=== PATIENT | female | born 1955 | race African-American/Black ===

== ENCOUNTER → 2016-12-19 | Day surgery (SDC) | payer MEDICARE ==
[~2016-12-19] VITALS: Ht 167.6 cm; Wt 68.0 kg
[~2016-12-19] MED LIST: ACET325T51 PO; Acetaminophen PO; ESOM20CA28 PO; HYDR-4003 PO; KLO5T PO; LAMO200T PO; LORA1TAB PO; Lactated Ringer's 1,000 ML IV ONE; NAPR500T PO; OLAN10TA19 PO; ONDA4TAB12 PO; OXCA150T PO; POLY17PO6 PO; PRAZ2CAP2 PO
[2016-12-19 13:59] VITALS: BP 109/73; PULSE 72; RESP 16; O2SAT 96
--- NOTE | 2016-12-19 15:07 | PCM.HPANE ---
Patient Data Surgeon Admitting Provider: Attending Provider:Kiarra Aponte MD Primary Care Physician:Calvin Wolf DO Other Provider:Rachel Etienne Anesthesia Reason for Visit Pancreatic Mass Ht/WT & BMI Height (Feet): 5 Height (Inches): 6 Weight (Kilograms): 68 Body Mass Index 24.00 Allergies Coded Allergies: No Known Drug Allergies (Verified Allergy, Unknown, 12/19/14) Past Anesthesia History Anesthesia History: Denies:: Abnormal Airway, Anesthesia Reactions, Difficult Intubation, Fam Anesthesia Reaction, Fam Malignant Hypertherm, Malignant Hyperthermia Diabetes History Hx Diabetes?: No MRSA MRSA: No Medications Reported Medications Acetaminophen 325 Mg Rlqiwk797 Mg PO Q4H PRN For Pain Ref 0 12/19/16 Prazosin 2 Mg Capsule2 Mg PO HS 12/16/16 Oxcarbazepine 150 Mg Btsfdi586 Mg PO BID 30 Days 12/16/16 Olanzapine 10 Mg Flodcm79 Mg PO DAILY Ref 0 12/16/16 Esomeprazole Magnesium (Nexium)20 Mg Capsule.dr20 Mg PO DAILY Ref 0 12/16/16 Naproxen (Naprosyn)500 Mg Rnrocz764 Mg PO BID PRN For Pain Ref 0 12/16/16 Clonazepam 0.5 Mg Tablet0.5 Mg PO BID PRN For Anxiety Ref 0 12/16/16 Lorazepam 1 Mg Tablet1 Mg PO HS PRN For Insomnia Ref 0 11/07/14 Lamotrigine (Lamictal)200 Mg Yqbeec194 Mg PO BID 30 Days Ref 0 11/06/14 Discontinued Reported Medications Ranitidine 150 Mg Wziwlbx720 Mg PO DAILY 30 Days Ref 0 12/18/14 Omeprazole Magnesium (Omeprazole)20 Mg Capsule.dr20 Mg PO DAILY 30 Days Ref 0 12/18/14 Guar Gum (Benefiber)1 Each Packet1 Each PO 11/07/14 Ondansetron (Zofran)8 Mg Tab8 Mg PO [id number] PRN For Nausea 11/07/14 Quetiapine Fumarate (Seroquel)25 Mg Tablet1 Tab PO BID 30 Days Ref 0 11/07/14 Doxepin 50 Mg Ckmaouz77 Mg PO HS 30 Days 11/06/14 History HEENT History: Denies:: Abnormal Airway Difficult Intubation Dysphagia Hearing Problem Hx of Heart Problems?: No Cardiovascular History: Denies:: AICD Atrial Fibrillation Chest Pain Hypertension Pacemaker Valvular Heart Disease Hx of Respiratory Problem?: No Respiratory History: Positive for:: Asthma Denies:: COPD Cough Hemoptysis Pneumonia Tuberculosis Other History/Comment No recent MDi use Neurological History: Denies:: CVA Hx of GI Problems?: Yes Gastrointestinal History: Positive for:: Gastroesphageal Reflux Hiatal Hernia Denies:: Cirrhosis Diverticulitis Rectal Bleeding Other History/Comment Mass on CT, found for workup of feeling 'poorly" Female Hx: Denies:: Currently Musculoskeletal History: Positive for:: Fibromyalgia Denies:: Joint Replacement Psycho Social History: Positive for:: Anxiety (Bi-polar/ PTSD) Hx Depression Hx Surgeries?: Yes (ovary cyst, ganglian r hand, ) Hx Any Other Health Problems?: Yes Hx Diabetes: No Hx Alcohol Use: No Smoking Status: Former Smoker Light Tobacco Smoker Stop/Bang Treated for Sleep Apnea?: No S-Snoring: Do You Snore Loudly: No T-Tired: feel tired, fatigued: Yes O-Obsered: Observed not breath: No P-Blood Pressure: treated: No B- Body Mass Index > 35 kg/m2: No A- Age over 50: Yes N- Neck Large Circumference: No G- Gender Male: No RONALD Total Score: 2 Risk Assessment Category Category 1A: Patient has history of documented sleep apnea, and HAS NOT received any narcotic, sedative or anesthesia administration during this stay. Category 1B: Patient has history of documented sleep apnea, and HAS received any narcotic , sedative or anesthesia administration during this stay Category 2: Patient has SUSPECTED Obstructive Sleep Apnea, and HAS received any narcotic , sedative or anesthesia administration during this stay. Category 3: Patient has SUSPECTED Obstructive Sleep Apnea and HAS NOT received narcotic, sedative or anesthesia administration during this stay. Category 4: Outpatient in Procedural Areas with known sleep apnea or who screen positive for High Risk via the STOP/BANG questionnaire. Exam Exam Vital Signs Vital Signs Date Time Temp Pulse Resp B/P Pulse Ox O2 Delivery O2 Flow Rate FiO2 12/19/16 13:59 72 16 109/73 96 Room Air General Appearance: Alert, Oriented X3, Cooperative HEENT/AIRWAY: MP 2 Lungs: Clear to Auscultation Heart: Exam Unremarkable Plan Impression Patient chart reviewed, patient interviewed and anesthestic plan with risks, benefits, and alternatives discussed, and informed consent obtained. ASA Physical Status: ASA2 Mod Systemic Disease Anesthetic Plan: GA Bene/Risks/Altern/Consents: Yes HP Complete Prior to Induction: Yes Anjum Carvajal MD Dec 19, 2016 15:07
[2016-12-19 16:05] VITALS: BP 102/75; PULSE 78; RESP 14; O2SAT 99
--- NOTE | 2016-12-19 16:12 | PCM.ANEP1 ---
Post Anesthesia Phase 1 PACU Phase 1 Assessment Vital Signs Vital Signs Date Time Temp Pulse Resp B/P Pulse Ox O2 Delivery O2 Flow Rate FiO2 12/19/16 13:59 72 16 109/73 96 Room Air Anesthetic Administered: GA Level of Alertness: Awake, talking GAN's with Equal Strength: Yes Pain: No Nausea or Vomiting: No Oxygen Delivery: Room Air Lungs: Clear to Auscultation Dermatome Level: Full Sensation (Awake comfortable A/O x 3) Anjum Carvajal MD Dec 19, 2016 16:12
--- NOTE | 2016-12-19 16:12 | PCM.ANEP2 ---
Post Anesthesia Evaluation ASA/CMS Post Anesthesia VS in Patient's Normal Range?: Yes Resp Stable; Airway Patent?: Yes CV Function & Hydration Stable: Yes Mental Status Recovered?: Yes Pain control Satisfactory?: Yes N/V Control Satisfactory?: Yes Anjum Carvajal MD Dec 19, 2016 16:12
[2016-12-19 16:21] VITALS: BP 128/81; PULSE 68; RESP 14; O2SAT 100
[2016-12-19 16:26] VITALS: BP 115/77; PULSE 57; RESP 14; O2SAT 100
--- NOTE | 2016-12-20 03:35 | ENDO ---
[address] [address] ENDOSCOPY PROCEDURE PATIENT: DEEPA HUANG : 1955 MR#: [id number] ADMIT: 12/19/2016 JOB ID: [id number] PROCEDURE: EUS. INDICATION: Recent CT scan finding with a mass arising from possibly the pancreas versus the stomach wall. Imaging was performed secondary to the patient's complaint of weight loss. INSTRUMENTS USED: A [id number] linear echoendoscope, as well as a [id number]. ASA CLASSIFICATION/MALLAMPATI SCORE/MEDICATIONS: As per Dr. Carvajal's anesthesia note. PROCEDURE DETAILS: After informed consent was obtained, the patient was brought into the GI suite, where she was placed on oxygen via nasal cannula and monitored with continuous pulse oximeter, telemetry, and blood pressure monitoring. A time-out was performed. Then, she was placed in a left lateral decubitus position and medications were administered for sedation. A bite block was placed. The standard EGD scope was inserted through the bite block and advanced under direct visualization to the second portion of the duodenum without difficulty. ESOPHAGOGASTRODUODENOSCOPY FINDINGS: 1. Normal-appearing duodenal bulb, first and second portion. 2. Normal-appearing pylorus, antrum and gastric body. In the proximal portion of the gastric body, I did appreciate a bulge. The bulge measured approximately 3 x 3 cm. 3. The GE junction appeared normal. The remainder of the exam was otherwise normal. Impression: Bulge in the proximal gastric body. The linear echoendoscope was then introduced through the bite block and advanced without difficulty to the second portion of the duodenum. Linear echoendoscopic findings demonstrated the followin. There was an approximately 2.9 cm x 2.5 cm, well-circumscribed mass arising from the pancreas. The center of the mass appeared hypoechoic and multi-septated, suggestive of internal necrosis. Fine needle aspiration was not performed. The lesion appeared to be abutting the stomach wall. 2. The pancreatic duct was visualized in the body, and appeared unremarkable. 3. The remainder of the pancreas, otherwise appeared normal. 4. The common bile duct was identified and appeared to be normal in course and caliber. 5. Flow was noted in the portal vein, splenic vein, splenic artery. 6. The visualized portions of the left lobe of the liver appeared unremarkable. 7. The celiac axis was identified and no suspicious-appearing lymph nodes were seen. 8. The left adrenal gland was identified and appeared normal. 9. Examined portions of the spleen appeared normal. IMPRESSION: 1. A 2.9 cm x 2.5 cm, well circumscribed mass with what appeared to be a multi-septated necrotic center arising from the pancreas and abutting the stomach. 2. No suspicious lymph nodes were appreciated. RECOMMENDATIONS: Further plans as per Surgery. COMPLICATIONS: None. ESTIMATED BLOOD LOSS: 0.
== END | disposition home or self-care (01) ==
LOC: END 00:35
PROVIDERS: ATTEND Internal Medicine Gastroenterology
DX: K86.9 Disease of pancreas, unspecified (principal); R63.4 Abnormal weight loss

== ENCOUNTER 2017-01-03 06:30 | Inpatient (IN) | payer MEDICARE ==
[~2017-01-03] VITALS: Ht 167.6 cm; Wt 67.8 kg
[2017-01-03] VITALS (21 sets, daily range): BP systolic 109–149; BP diastolic 56–87; PULSE 50–79; RESP 12–18; O2SAT 93–98
[~2017-01-03 06:30] MED LIST changes: -ACET325T51 PO; -Acetaminophen PO; +Bupivacaine Liposome 1.3% 20 mL Inj NERVEBLOCK ONE; +CeFAZolin Inj 2 GM in IV Premix 1 EACH IV ONE; -HYDR-4003 PO; -KLO5T PO; -LAMO200T PO; -LORA1TAB PO; -Lactated Ringer's 1,000 ML IV ONE; -NAPR500T PO; -OLAN10TA19 PO; -ONDA4TAB12 PO; -OXCA150T PO; -POLY17PO6 PO; -PRAZ2CAP2 PO
[2017-01-03] MEDS: Lactated Ringer's 1,000 ML IV SCH ×4 (07:18→15:41)
[2017-01-03] MEDS ORDERED: Lactated Ringer's 1,000 ML IV ONE (10:04)
[2017-01-03] MEDS ORDERED: MetoCLOpramide 5 mg/mL 2 mL Inj IVPUSH PRN ×2 (10:20→11:30)
[2017-01-03] MEDS ORDERED: EPHEDrine Sulfate 50 mg/mL Inj IVPUSH PRN (10:20)
[2017-01-03] MEDS ORDERED: Lactated Ringer's 1,000 ML IV SCH (10:20)
[2017-01-03] MEDS ORDERED: HYDROmorphone 1 mg/mL Inj IVPUSH PRN (10:20)
[2017-01-03] MEDS ORDERED: Labetalol 5 mg/mL 4 mL Inj IV PRN (10:20)
[2017-01-03] MEDS ORDERED: Lactated Ringer's 500 ML IV PRN (10:20)
[2017-01-03] MEDS ORDERED: Ondansetron 2 mg/mL 2 mL Inj IVPUSH PRN ×2 (10:20→11:30)
[2017-01-03] MEDS ORDERED: Phenylephrine 10,000 mCg/mL Inj IVPUSH PRN (10:20)
[2017-01-03] MEDS ORDERED: Atropine 0.4 mg/mL Inj IVPUSH PRN (10:20)
[2017-01-03] MEDS ORDERED: fentaNYL-PF 50 mCg/mL 2 mL Inj IVPUSH PRN (10:20)
--- NOTE | 2017-01-03 10:23 | PCM.HPANE ---
Patient Data Surgeon Admitting Provider: Attending Provider:Orion Donnelly MD Primary Care Physician:Calvin Wolf DO Other Provider:[facility] Anesthesia Reason for Visit Pancreatic Mass Ht/WT & BMI Height (Feet): 5 Height (Inches): 6 Weight (Kilograms): 65.9 Body Mass Index 23.00 Allergies Coded Allergies: codeine (Verified Allergy, Severe, vomiting, 01/03/17) Past Anesthesia History Anesthesia History: Denies:: Abnormal Airway, Anesthesia Reactions, Difficult Intubation, Fam Anesthesia Reaction, Fam Malignant Hypertherm, Malignant Hyperthermia Diabetes History Hx Diabetes?: No MRSA MRSA: No Medications Home Meds Incl Beta Liu: No Reported Medications Esomeprazole Magnesium (Nexium)20 Mg Capsule.dr20 Mg PO DAILY Ref 0 12/16/16 Discontinued Reported Medications Acetaminophen 325 Mg Qxrath567 Mg PO Q4H PRN For Pain Ref 0 12/19/16 Prazosin 2 Mg Capsule2 Mg PO HS 12/16/16 Oxcarbazepine 150 Mg Yatpii943 Mg PO BID 30 Days 12/16/16 Olanzapine 10 Mg Bkgcqy37 Mg PO DAILY Ref 0 12/16/16 Naproxen (Naprosyn)500 Mg Tuerls175 Mg PO BID PRN For Pain Ref 0 12/16/16 Clonazepam 0.5 Mg Tablet0.5 Mg PO BID PRN For Anxiety Ref 0 12/16/16 Lorazepam 1 Mg Tablet1 Mg PO HS PRN For Insomnia Ref 0 11/07/14 Lamotrigine (Lamictal)200 Mg Hffeyi679 Mg PO BID 30 Days Ref 0 11/06/14 History HEENT History: Denies:: Abnormal Airway Difficult Intubation Dysphagia Hearing Problem Hx of Heart Problems?: No Cardiovascular History: Denies:: AICD Atrial Fibrillation Chest Pain Hypertension Pacemaker Valvular Heart Disease Hx of Respiratory Problem?: No Respiratory History: Positive for:: Asthma Denies:: COPD Cough Hemoptysis Pneumonia Tuberculosis Use of C-PAP Machine Neurological History: Positive for:: Headaches (migraines per emr) Denies:: CVA Dementia Multiple Sclerosis Parkinson's Disease Seizures Hx of GI Problems?: Yes Gastrointestinal History: Positive for:: Gastroesphageal Reflux Hiatal Hernia Denies:: Cirrhosis Diverticulitis Rectal Bleeding Other GI Pertinent History: abdominal mass- probable pancreatic- current admission problem. Hx of unintentional weight loss Hx of Problems?: No Female Hx: Denies:: Currently Skin History: Denies:: History Skin Disorders? Hx Musculoskeletal Problems?: Yes Musculoskeletal History: Positive for:: Fibromyalgia Denies:: Joint Replacement Psycho Social History: Positive for:: Anxiety (Bi-polar/ PTSD- pt recently stopped all meds) Hx Depression Hx Surgeries?: Yes (ovary cyst, ganglian r hand, ) Hx Any Other Health Problems?: Yes Other History: Denies:: Thyroid Disease Hx Diabetes: No Hx Alcohol Use: NoHx Substance Use: No Smoking Status: Current Every Day Smoker Have You Smoked inLast 12 mo: Yes Stop/Bang P-Blood Pressure: treated: No B- Body Mass Index > 35 kg/m2: No A- Age over 50: Yes N- Neck Large Circumference: No G- Gender Male: No Risk Assessment Category Category 1A: Patient has history of documented sleep apnea, and HAS NOT received any narcotic, sedative or anesthesia administration during this stay. Category 1B: Patient has history of documented sleep apnea, and HAS received any narcotic , sedative or anesthesia administration during this stay Category 2: Patient has SUSPECTED Obstructive Sleep Apnea, and HAS received any narcotic , sedative or anesthesia administration during this stay. Category 3: Patient has SUSPECTED Obstructive Sleep Apnea and HAS NOT received narcotic, sedative or anesthesia administration during this stay. Category 4: Outpatient in Procedural Areas with known sleep apnea or who screen positive for High Risk via the STOP/BANG questionnaire. Exam Exam Vital Signs Vital Signs Date Time Temp Pulse Resp B/P Pulse Ox O2 Delivery O2 Flow Rate FiO2 01/03/17 07:30 36.1 73 16 109/74 95 Room Air General Appearance: Alert, Oriented X3, Cooperative, No Acute Distress HEENT/AIRWAY: MP 2, Neck Movement (FROM), Mouth Opening (3 FBMO) Lungs: Normal Air Movement Heart: Regular Rate/Rhythm Meds/Labs/Diagnostics Admission Meds Current Medications Lactated Ringer's (Lr) 1,000 ml @ 120 mls/hr Q8H20M IV Last administered on t 07:18; Start 01/03/17 at 05:00; Stop 01/03/17 at 13:19 Plan Impression Patient chart reviewed, patient interviewed and anesthestic plan with risks, benefits, and alternatives discussed, and informed consent obtained. NPO Status: 01/02/17 2300 ASA Physical Status: ASA2 Mod Systemic Disease Anesthetic Support Modalities: Arterial Line (arterial line discussed with possible risks of bleeding, infection, blood clots, diminished blood flow to the hand) Anesthetic Plan: GA, Epidural (Thoracic epidural for postoperative pain control discussed. Dr. Donnelly consulted prior to surgery and thought it would be a good idea because of a high chance of performing a large midline incision.) Bene/Risks/Altern/Consents: Yes HP Complete Prior to Induction: Yes Other Also possible postoperative intubation in the ICU and blood products discussed. AQA. Consent obtained if necessary. Pritesh Lee MD Jan 03, 2017 08:10
[2017-01-03] MEDS ORDERED: Morphine PCA 1 mg/mL 30 mL Inj IV PRN (11:30)
--- NOTE | 2017-01-03 11:38 | PCM.SURGOP ---
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 On upper endoscopy by Dr. Yu, there was no visible lesion in the stomach. She then had a CT scan of the abdomen and pelvis, which demonstrated a 3.3 cm mass with central fluid density. By CT scan, it was not clear if the lesion was arising from the gastric wall or the pancreas. She then had endoscopic ultrasound by Dr. Wright, which showed a 3 x 3 cm bulge into the gastric cardia. With ultrasound, it was most easily visible through the fourth portion of the duodenum, and it looked like it was most likely arising from the pancreas as opposed to the stomach. It was not biopsied, because of its central necrosis, plans were to resect the lesion no matter which organ it was arising from. Tumor markers were negative. She was vaccinated against encapsulated organisms, planning for possible splenectomy. She was treated preoperatively with the [facility] nutritional supplementation program. After discussion of risks and benefits, she agreed to proceed with laparoscopy with either gastric resection versus distal pancreatectomy/ splenectomy. Findings: The lesion was arising from the posterior cardia of the stomach, and was not adherent to the pancreas. Frozen section confirmed a spindle cell neoplasm with central degeneration, consistent with GIST. The liver had a small simple- appearing cyst. No other masses were apparent. Intraoperative endoscopy by Dr. Schwartz after wedge resection showed no significant evidence of luminal narrowing. Leak testing was performed with air, and there was no evidence of leak. Procedure Details Preoperatively, the patient underwent epidural pain catheter placement. She then underwent smooth induction of general endotracheal anesthesia. A right radial arterial catheter was placed. A Duval catheter was placed. A nasogastric tube was placed. She was placed in the left semi-decubitus position , and was prepped and draped in wide sterile fashion. A procedural pause was performed according to the SCOAP checklist, and all were found to be in agreement. Pneumoperitoneum was established with a Veress needle in the left subcostal region. The abdomen was then entered with a cold millimeter optical viewing trocar just above the umbilicus in the midline. The Veress needle site was inspected, and there were no injuries. The Veress needle was removed. Additional ports were placed under visualization. A 5 mm port was placed in the midline epigastrium, two 5 mm ports in the left subcostal region, and a 5 mm port in the right subcostal region for a liver retractor. The abdomen was inspected. There were no peritoneal masses. The anterior surface of the stomach was normal. There was a small simple appearing cystic lesion adjacent to the falciform ligament of the liver. The remainder of the liver looked normal. Dissection was begun by opening the lesser sac using a LigaSure device. During this dissection, there was one point where I was fairly close to the distal transverse colon, but this was inspected carefully, and there was no evidence of injury. Once the lesser sac was successfully opened, the posterior gastric surface revealed presence of a gastric mass, not a pancreatic mass. The exterior surface was smooth, and it was not adherent to surrounding structures. The spleen looked normal. Posterior attachments down to the celiac axis and left kev the diaphragm were taken down with the LigaSure device. The left gastric and splenic arteries were visualized, and not injured. The stomach was rotated over, and the lesser omentum was opened, to see if the lesion could be more easily visualized and mobilized from the lesser curve side of the stomach. Dissection was carried down along the wall of the stomach using blunt dissection until the lesion was visualized, but ultimately, it was apparent that it would be more easily resected through the lesser sac side. Dissection continued proximal and posterior to the lesion until normal stomach was again visualized. At this point, Dr. Schwartz scrubbed out and passed the gastroscope through the mouth into the stomach. Please see her dictated report of upper endoscopy. Again, no mucosal lesion could be identified. At this point the 5 mm port in the midclavicular line on the left was upsized to a 12 mm port to allow passage of a stapler. Using the [place] 60 mm stapler with thick tissue of 3.8 mm lorin, the stapler was clamped across the base of the lesion through normal gastric tissue, and again the gastroscope was passed proximal and distal to the firing of the stapler to ensure that there was no luminal narrowing. The stapler was fired. Using this method with combination of laparoscopy and gastroscopy, passing the gastroscope to and fro before each firing of the stapler, gastric wedge resection was performed using a total of 3 staple firings using the 3.8 mm thick tissue lorin. The lesion was completely dissected free with a third firing of the stapler. The lesion was placed into an Endo Catch bag. The 12 mm port site was extended at the level of the skin and the fascia until the Endo Catch bag with the lesion could be easily removed. Frozen section was obtained. This confirmed a spindle cell neoplasm with central degeneration, consistent with gastric GIST, completely excised, with what appeared to be approximately a 1 cm margin on the gastric staple line. The gastric staple line was then leak tested by insufflating the stomach with air through the gastroscope while the upper abdomen was submerged in saline irrigation. There was no evidence of leak. The stomach was then decompressed through the gastroscope. A 19 Amharic round MALATHI drain was brought out through the left lateral incision, and positioned in the lesser sac, adjacent to the gastric staple line. It was secured to the skin with a 3-0 nylon stitch. The nasogastric tube was placed after the gastroscope was removed. Hemostasis was adequate. The fascia of the left midclavicular port site was closed using 0 Vicryl suture in a figure-of- eight 2. The 5 mm ports were removed under visualization after the liver retractor was removed. The fascia of the supraumbilical 12 mm port was closed with an 0 Vicryl suture in a [id number]. Liposomal bupivacaine was instilled into the subcutaneous tissue adjacent to the left midclavicular incision and the supraumbilical incision. The skin incisions were closed using running 4-0 Monocryl subcuticular stitches. Steri-Strips and sterile dressings were applied. At the end of the case all needle and sponge counts were correct 2. The patient was awakened from anesthesia without difficulty, and taken to the recovery room in satisfactory condition, having tolerated the procedure well. Assistance from Dr. Schwartz, Dr. Salazar, and Lillian Underwood PA-C was critical to the performance of this operation in a safe manner, because of the complexity of the location, requiring combined upper endoscopy and laparoscopy at the same time. Complications There were no periprocedural complications identified. Surgical Specimen Removed: Yes Specimen sent to Pathology: Yes Surgical Specimen description: Gastric mass Anesthetic Plan: GA, Epidural (Thoracic epidural for postoperative pain control discussed. Dr. Donnelly consulted prior to surgery and thought it would be a good idea because of a high chance of performing a large midline incision.) Grafts, Implants: None Output, Estimated Blood Loss: 5 Blood Administration during dyer: No Drains: MALATHI Drain #1 Catheters: Urethral 2 Way Duval copies to: ZANE REYES DO; Kiarra Aponte MD; Ramírez Yu MD, Joshua D MD Jan 03, 2017 11:38
--- NOTE | 2017-01-03 11:51 | ENDO ---
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 POSTPROCEDURAL DIAGNOSIS: Gastric gastrointestinal stromal tumor. PROCEDURE PERFORMED: Upper endoscopy with endoscopic nasogastric tube placement. SURGEON: Michelle Schwartz MD FINDINGS: The GIST was visible laparoscopically but not endoscopically. Gastric wedge resection performed by Dr. Donnelly while the endoscope was in place without significant narrowing of the stomach. HISTORY OF PRESENT ILLNESS: This is a 61-year-old woman with a history of chronic reflux who began to have involuntary weight loss for whom a CT scan of the abdomen and pelvis was performed and a 3.3 cm mass was found at the junction of the posterior gastric wall, pancreas, and adrenal. She underwent endoscopic ultrasound, and the etiology could not be determined. Intraoperatively, laparoscopy was performed. It was confirmed to be a posterior gastric wall tumor, probably gastrointestinal stromal tumor. This endoscopic report is from intraoperative endoscopy while Dr. Donnelly was performing laparoscopy. DESCRIPTION OF PROCEDURE: The patient was in modified right lateral decubitus position in the operating room while laparoscopy was being performed. The gastrointestinal stromal tumor on the posterior fundus had been adequately mobilized laparoscopically. A bite block was placed in the mouth, and the endoscope was advanced through the esophagus into the stomach. The location of the endoscope was noted laparoscopically, and the scope was advanced to the antrum. The mass could not be visualized from within the lumen of the stomach. The endoscope was left in position along the lesser curvature of the stomach while Dr. Donnelly placed a stapler across the base of the resection margin of the tumor. Once the stapler was then placed but had not yet been fired, I withdrew the endoscope to the gastroesophageal junction and advance it again to confirm that there was adequate width in the remaining gastric lumen to avoid stricture. The stapler was then fired. The endoscope remained in place while this process was repeated for two additional staple fires. Once the entire mass had been resected, Dr. Donenlly covered the stomach with saline while I insufflated the stomach to perform a leak test. No leak was seen. A nasogastric tube was then inserted under endoscopic guidance and positioned with the tip in the antrum of the stomach, well beyond the staple line at the fundus. The endoscope was then withdrawn and the NG tube was taped into place. The tip of the NG tube was confirmed laparoscopically to be in the correct position once the endoscope had been removed. Of note, there was mild irregularity of the squamocolumnar junction, but no additional abnormalities seen within the esophagus or entire visualized stomach. A retroflexed view of the stomach was not performed during this procedure. ESTIMATED BLOOD LOSS: None. COMPLICATIONS: None. SPECIMENS: None for this portion of the procedure; see Dr. Donnelly' separate operative report regarding surgical specimens. LUCINDA
--- NOTE | 2017-01-03 12:24 | PCM.ANEP1 ---
Post Anesthesia Phase 1 PACU Phase 1 Assessment Date of Service: Jan 03, 2017 Vital Signs Vital Signs Date Time Temp Pulse Resp B/P Pulse Ox O2 Delivery O2 Flow Rate FiO2 01/03/17 11:50 77 14 149/87 95 Room Air 01/03/17 11:45 78 18 131/56 97 Room Air 01/03/17 11:40 35.8 79 16 139/72 98 Room Air 01/03/17 07:30 36.1 73 16 109/74 95 Room Air Anesthetic Administered: GA Level of Alertness: Awake, talking GAN's with Equal Strength: Yes Pain: No Nausea or Vomiting: No Oxygen Delivery: Simple Mask Lungs: Normal Air Movement Dermatome Level: Full Sensation Summary epidural removed at the end of surgery per surgeon request. Tip intact. Pritesh Lee MD Jan 03, 2017 12:24
--- NOTE | 2017-01-03 12:24 | PCM.ANEP2 ---
Post Anesthesia Evaluation ASA/CMS Post Anesthesia VS in Patient's Normal Range?: Yes Resp Stable; Airway Patent?: Yes CV Function & Hydration Stable: Yes Mental Status Recovered?: Yes Pain control Satisfactory?: Yes N/V Control Satisfactory?: Yes Pritesh Lee MD Jan 03, 2017 12:24
[2017-01-03] MEDS: Acetaminophen IV 1,000 MG in IV Premix 1 EACH IV SCH ×3 (14:30→21:51)
[2017-01-03] MEDS: Dextrose 5% Lactated Ringer's 1,000 ML IV SCH (16:10)
[2017-01-03] MEDS ORDERED: Ondansetron 2 mg/mL 2 mL Inj ONE (16:17)
[2017-01-03] MEDS ORDERED: MetoCLOpramide 5 mg/mL 2 mL Inj ONE (16:17)
[2017-01-03] MEDS ORDERED: HYDROmorphone 2 mg/mL Inj ONE (16:17)
[2017-01-03] MEDS ORDERED: Phenylephrine/NS 100 mCg/mL 10 mL Syringe IVPUSH ONE (16:17)
[2017-01-03] MEDS ORDERED: Rocuronium 10 mg/mL 5 mL Inj ONE (16:17)
[2017-01-03] MEDS ORDERED: Propofol 10,000 mCg/mL 20 mL Inj ONE (16:17)
[2017-01-03] MEDS ORDERED: fentaNYL-PF 50 mCg/mL 2 mL Inj ONE (16:17)
[2017-01-03] MEDS ORDERED: Glycopyrrolate 0.2 MG/ML 1mL Inj ONE (16:17)
[2017-01-03] MEDS ORDERED: Neostigmine 1 mg/mL 10 mL Inj ONE (16:17)
[2017-01-03] MEDS ORDERED: Dexamethasone 4 mg/mL Inj ONE (16:17)
--- NOTE | 2017-01-03 16:56 | NUR ---
ADMIT TO OSC Patient arrived to room 1017 on OR [place] and was able to scoot transfer over to hospital bed with minimal assistance. Awake and alert, on RA. Denies any SOB. NGT @ 60cm, hooked up to low continuous suction. MALATHI drain to L side abdomen, drsg C/D/I. 4 lap sites are C/D/I. Duval catheter in place and draining. C/o abdominal soreness after moving to hospital bed. Imitated Morphine SHAKE FEEDER and instructed patient on how to use it. Oriented to room and call light. Patient dosing off and on. Care continues.
[2017-01-03] MEDS: Heparin 5,000 Unit/mL Inj SUBQ SCH (18:30)
[2017-01-03] MEDS: Famotidine Inj 20 MG in IV Premix 1 EACH IV SCH (20:51)
[2017-01-04] VITALS (10 sets, daily range): BP systolic 95–127; BP diastolic 56–73; PULSE 46–67; RESP 16–18; O2SAT 96–99
[2017-01-04] MEDS: Dextrose 5% Lactated Ringer's 1,000 ML IV SCH ×3 (00:44→19:21)
[2017-01-04] MEDS: Heparin 5,000 Unit/mL Inj SUBQ SCH ×3 (00:44→17:23)
--- NOTE | 2017-01-04 02:19 | NUR ---
discomfort patient with minimal discomfort to abdomen. rates pain 1-2. demonstrates use of decal decorator morphine. ng tube patent. minimal output. patient medicated with scheduled tylenol reviewed pain scale with patient . verbalized understanding repostioning patient q2-3 hours. minimal assist.
[2017-01-04] MEDS: Acetaminophen IV 1,000 MG in IV Premix 1 EACH IV SCH ×3 (04:40→15:07)
[2017-01-04 07:15] LABS: BASOPHILS % (AUTO) 0.2 % (0-3); EOSINOPHILS % (AUTO) 0.2 % (0-5); Mean Corpuscular Hemoglobin 30.6 pg (27.0-35.0); Mean Corpuscular Volume 93.5 fL (81-100); NEUTROPHILS % (AUTO) 60.3 % (40-74); Platelet Count 228 bil/L (150-400)
[2017-01-04] MEDS: Polyethylene Glycol (PEG) 17 Gm Powder PO SCH (08:19)
[2017-01-04] MEDS: Famotidine Inj 20 MG in IV Premix 1 EACH IV SCH ×2 (08:19→19:21)
--- NOTE | 2017-01-04 08:19 | PROG NOTE ---
[address] [address] PROGRESS NOTE PATIENT: DEEPA HUANG : 1955 MR#: [id number] ADMIT: 01/03/2017 JOB ID: [id number] DATE: 01/04/2017 SUBJECTIVE: The patient is seen in followup. She had a good night with very little incisional pain. She has not had any significant nausea. She is not passing flatus. OBJECTIVE: Temperature 36.7, pulse 54, respirations 16, blood pressure 127/73, saturation 97% on room air. In general, she is resting in bed, in no acute distress. HEENT: Nasogastric tube has scant fairly clear drainage. Chest is clear. Heart: Regular rate and rhythm. No murmurs. Abdomen mildly distended, but soft. Her incisions are clean with no erythema. Bowel tones are hypoactive. MALATHI drain is serosanguineous, MALATHI output overnight was 10 cc. LABORATORIES: White blood cell count is 13.1, hematocrit 36.1, platelets 228. Chemistry is pending. ASSESSMENT AND PLAN: A 61-year-old woman with a gastrointestinal stromal tumor of the gastric cardia posteriorly, postoperative day one, status post laparoscopic wedge gastric resection. She is doing well clinically. Her nasogastric tube was removed this morning. She will be started on a clear liquid diet. If she tolerates a clear liquid diet, we will discontinue the IV and place her on oral pain medications. MALATHI drain will stay in for today. Duval catheter will be discontinued. I anticipate if she continues to do well that she could be discharged from the hospital in 1-2 days. Ambulation was encouraged.
--- NOTE | 2017-01-04 15:04 | NUR ---
Social Work-initial assessment: Data:See initial assessment. Pt is a 61 y/o female who was admitted on 01/03/17 for pancreatic mass per H&P. Pt's insurance is [facility] and PCP is Calvin Wolf DO. EMR reviewed. Pt's readmission score is 4-high risk. JOEY met with pt and roommate to discuss discharge planning, SW role explained. Pt resides at home with her roommate Mandie [phone] where she remains independent with ADLS. Pt does not use any DME and drives. Pt has no HH history or SNF history. Pt has no long term care administrator care or VA benefits. SW discussed DPOA/ advanced directive, pt states she has not completed this, SW provided her with paperwork. Pt also interested in [facility] application, which JOEY has provided. Per RN notes, pt has been up independent in her room. Pt's roommate to provide transport home. SW provided phone number and plan on white board in room. No anticipated discharge needs. SW will continue to follow if needs arise. Assessment:Pt who is independent at baseline. Plan:Pt to discharge home when medically stable via POV. No anticipated discharge needs. SW will continue to follow if needs arise. Benny Goff Addendum: 01/04/17 at 1512 by RAO CHAVEZ Amended: Links added.
--- NOTE | 2017-01-04 16:13 | NUR ---
Waller/Activity/Pain D/c'd waller at approx 0830. Pt able to void spontaneously and w/o complications. Pt encouraged to increase activity. Up with this RN x1 and able to do half the department loop. Pt's pain is tolerable while at rest, increases w/ getting up and out of bed, but states ok while ambulating. COBOL APPLICATION DEVELOPER discontinued and switched to oral medication. 1tab Isa administered and decreased pt's pain from a 3/10 to a 1/10 pain level. Pt drowsy, but awakens easily.
[2017-01-05] MEDS: Heparin 5,000 Unit/mL Inj SUBQ SCH ×3 (00:34→17:03)
--- NOTE | 2017-01-05 01:30 | NUR ---
GI No flatus, denies nausea. Up with minimal assist to bathroom to void. State her abdomen is "tender" but not painful. Has denied the need for pain meds so far this shift. Resting quietly without complaints.
[2017-01-05 05:20] VITALS: BP 118/64; PULSE 69; RESP 16; O2SAT 96
--- NOTE | 2017-01-05 05:27 | NUR ---
Patient up to void - emptying own hat. Instructed to leave for measuring. Voided X4.
[2017-01-05 05:55] LABS: BASOPHILS % (AUTO) 0.4 % (0-3); EOSINOPHILS % (AUTO) 0.9 % (0-5); MONOCYTES % (AUTO) 4.8 % (4-12); Mean Corpuscular Hemoglobin 30.9 pg (27.0-35.0); Mean Corpuscular Volume 92.5 fL (81-100); NEUTROPHILS % (AUTO) 51.5 % (40-74); Platelet Count 214 bil/L (150-400)
[2017-01-05 08:13] VITALS: BP 112/64; PULSE 51; RESP 16; O2SAT 95
[2017-01-05] MEDS: Famotidine Inj 20 MG in IV Premix 1 EACH IV SCH ×2 (08:24→19:56)
[2017-01-05] MEDS: Polyethylene Glycol (PEG) 17 Gm Powder PO SCH (08:24)
--- NOTE | 2017-01-05 08:38 | PROG NOTE ---
[address] [address] PROGRESS NOTE PATIENT: DEEPA HUANG : 1955 MR#: [id number] ADMIT: 01/03/2017 JOB ID: [id number] DATE: 01/05/2017 SUBJECTIVE: The patient is seen in followup. She is doing well. She continues to have minimal pain. She has no nausea. She has not passed flatus but does feel rumbling and feels close to that point. She is tolerating clear liquids. OBJECTIVE: Temperature 37.1, pulse 69, blood pressure 118/64, saturation 96% on room air. In general, she is resting in bed in no acute distress. Chest is clear. Heart: Regular rate and rhythm. No murmurs. Abdomen is soft, nondistended. Bowel tones are present. Her incisions are clean with no erythema. Her MALATHI drain had 40 cc of serosanguineous drainage, MALATHI drain was removed at the bedside this morning. LABORATORIES: White blood cell count is 9.9, hematocrit 34.4, creatinine 0.60, glucose 98. ASSESSMENT AND PLAN: A 61-year-old woman with a 3 cm gastric GIST, postoperative day two, status post laparoscopic gastric wedge resection. She is doing well clinically. Her diet will be advanced to full liquids today. MALATHI drain was removed. I anticipate that she will be ready for discharge from the hospital tomorrow.
[2017-01-05 12:25] VITALS: BP 108/63; PULSE 52; RESP 18; O2SAT 98
--- NOTE | 2017-01-05 13:30 | NUR ---
Social Work-Readiness for Discharge Data: EMR reviewed. Pt is on day 2 of hospitalization for pancreatic mass per H&P. Pt is POD 2. Pt's diet continues to advance. Per RN notes, pt has been up independent in her room. Pt's roommate to provide transport home. No anticipated discharge needs. SW will continue to follow if needs arise. Assessment:Pt who is independent at baseline. Plan:Pt to discharge home when medically stable via POV. No anticipated discharge needs. SW will continue to follow if needs arise. Dominique Vargas MSW
--- NOTE | 2017-01-05 18:11 | NUR ---
BOWEL MOVEMENT/ AMBULATION Patient has bowel movement today, denies nausea, has been eating full liquid diet without any problems today. All incision sites c/d/i, MALATHI drain removed this am. Pain well controlled with PO medications. Patient has ambulated 100ft x3 times today.
[2017-01-05 19:58] VITALS: BP 124/75; PULSE 59; RESP 18; O2SAT 97
[2017-01-06] MEDS: Heparin 5,000 Unit/mL Inj SUBQ SCH ×2 (00:46→08:16)
--- NOTE | 2017-01-06 01:28 | NUR ---
Nausea/Pain Patient c/o nausea at beginning of shift. Zofran IVP given with effective results. No further complaints of nausea. No c/o breakthrough pain throughout the shift so far. Refusing offer for pain meds at this time. Education provided to inform staff if/when pain medication is needed. States understanding.
[2017-01-06 04:37] VITALS: BP 119/63; PULSE 55; RESP 16; O2SAT 96
--- NOTE | 2017-01-06 07:16 | PCM.DISURG ---
Surgical Discharge Instruction Date of Service Jan 06, 2017 Dates of Hospitalization Date of Hospital Admission Jan 03, 2017 at 16:16 Providers Admitting Physician: Orion Donnelly MD Primary Care Physician: Calvin Wolf DO Attending Physician: Orion Donnelly MD Discharge Diagnosis Post Operative diagnosis Gastric GIST Diet Discharge Diet: No restrictions Activity Discharge Activity-General: Activity as pain allows, No lifting >15 pounds for 2 weeks Dressing and Incisional Care Dressing Care: Allow Steri Stripes to fall off Hygiene: May shower Follow Up Plan Follow Up Plan with Dr. Donnelly in one week Call your provider for: Fever (over 101.5F), Vomiting, Discharge @ incision, pus discharge Orion Donnelly MD Jan 06, 2017 07:16
[2017-01-06] MEDS ORDERED: HYDR-4003 PO (07:20)
[2017-01-06] MEDS ORDERED: POLY17PO6 PO (07:20)
[2017-01-06] MEDS ORDERED: ONDA4TAB12 PO (07:20)
[2017-01-06] MEDS ORDERED: Acetaminophen PO (07:20)
[2017-01-06] MEDS: Famotidine Inj 20 MG in IV Premix 1 EACH IV SCH (08:16)
[2017-01-06] MEDS: Polyethylene Glycol (PEG) 17 Gm Powder PO SCH (08:16)
--- NOTE | 2017-01-06 08:20 | PROG NOTE ---
[address] [address] PROGRESS NOTE PATIENT: DEEPA HUANG : 1955 MR#: [id number] ADMIT: 01/03/2017 JOB ID: [id number] DATE: 01/06/2017 SUBJECTIVE: The patient is seen in followup. She continues to do well. She had a bowel movement yesterday. She is passing flatus. She is tolerating a diet. She has minimal pain and is just taking Tylenol at this point for discomfort. OBJECTIVE: Temperature 36.7, pulse 55, blood pressure 119/63, saturation 96% on room air. In general, she is resting in bed in no acute distress. Chest is clear. Heart: Regular rate and rhythm. No murmurs. Abdomen is soft, nondistended. Her incisions are clean with no erythema. ASSESSMENT AND PLAN: A 61-year-old woman postoperative day three status post laparoscopic resection of a proximal gastric GIST. She is doing well clinically. She will be discharged to home today. She will followup in general surgery clinic with me in one week.
--- NOTE | 2017-01-06 12:46 | NUR ---
Discharge Pt d/c'd home at approx 1215. Reviewed instructions w/ patient. She denies any questions or concerns at this time. IV d/c'd intact. Pt left w/ hard copies of RX and all belongings. Pt denied offer of w/c to her friend's POV and ambulated w/ a strong and steady gait.
--- NOTE | 2017-01-06 12:51 | NUR ---
Social Work-Discharge Data: EMR reviewed. Pt is on day 2 of hospitalization for pancreatic mass per H&P. Pt is POD 3. Per RN notes, pt has been up independent in her room. Pt's roommate to provide transport home. No discharge needs. Assessment:Pt who is independent at baseline. Plan:Pt to discharge home when medically stable via POV. No discharge needs. RAMA Correa
--- NOTE | 2017-01-09 11:02 | PCM.DC.SUR ---
Discharge Summary Date of Service: Date of Hospital Admission: Jan 03, 2017 at 16:16 Date of Operation(s): 01/03/2017 Date of Discharge: 01/06/2017 Diagnosis at Time of Discharge Primary diagnosis: Gastric GIST Other diagnoses: 1. Anxiety 2. Asthma 3. Bipolar mood disorder 4. Depression 5. GERD 6. Migraine headaches 7. Hypercholesterolemia 8. Insomnia 9. Daily cigarette smoker Problems: Operation Laparoscopic gastric wedge resection Brief History and Physical: The patient is a 61-year-old woman who had unintentional weight loss and epigastric pain. On upper endoscopy by Dr. Yu, there was no visible lesion in the stomach. She then had a CT scan of the abdomen and pelvis, which demonstrated a 3.3 cm mass with central fluid density. By CT scan, it was not clear if the lesion was arising from the gastric wall or the pancreas. She then had endoscopic ultrasound by Dr. Wright, which showed a 3 x 3 cm bulge into the gastric cardia. With ultrasound, it was most easily visible through the fourth portion of the duodenum, and it looked like it was most likely arising from the pancreas as opposed to the stomach. It was not biopsied , because of its central necrosis, plans were to resect the lesion no matter which organ it was arising from. Tumor markers were negative. She was vaccinated against encapsulated organisms, planning for possible splenectomy. She was treated preoperatively with the [facility] nutritional supplementation program. Consultants: None Hospital Course: The patient was admitted and underwent the above-mentioned operation without complication. Postsurgically her recovery was fairly uncomplicated. Bowel function returned on her second postsurgical day. She was stable for discharge on her third postsurgical day. Pathology: Pending Disposition: The patient was discharged home on her third postsurgical day. At the time of discharge she was tolerating a diet with no nausea or vomiting, her bowels were working, her wounds appeared to be healing, she was tolerating pain on oral analgesic, and she was ambulating without assistance. Follow-up Plan: She will follow-up in the office with Dr. Donnelly in 1 week ([Acetaminophen]) 325 MG TABLET 975 MG PO Q6H PRN PRN For Mild Pain or Fever Esomeprazole Magnesium (Nexium) 20 Mg Capsule.dr 20 MG PO DAILY (Reported) Hydrocodone-Acetaminophen 5-325 mg (Hydrocodone-Acetaminophen 5-325 mg) 1 Each Tablet 1 TABLET PO Q6H PRN PRN For Pain Ondansetron ODT (Ondansetron ODT) 4 Mg Tab.rapdis 4 MG PO Q6H PRN PRN For Nausea Polyethylene Glycol 3350 (Miralax) 17 Gm Powd.pack 17 GM PO DAILY copies to: ZANE REYES DO; Ramírez Yu MD, Fred H PA-C Jan 09, 2017 11:02
== END 2017-01-06 12:15 | disposition home or self-care (01) | DRG 544 ==
LOC: SAS 06:30 → OSC 16:16
PROVIDERS: ADMIT Student in an Organized Health Care Education/Training Program; ATTEND Student in an Organized Health Care Education/Training Program
PROC: 0D9680Z Drainage of Stomach with Drainage Device, Via Natural or Artificial Opening Endoscopic (ICD-10-PCS; 2017-01-03)
PROC: 0DB64ZX Excision of Stomach, Percutaneous Endoscopic Approach, Diagnostic (ICD-10-PCS; principal; 2017-01-03 08:30)
DX: C49.A2 Gastrointestinal stromal tumor of stomach (principal); M79.7 Fibromyalgia; F17.210 Nicotine dependence, cigarettes, uncomplicated

== ENCOUNTER 2017-01-08 15:34 | Emergency (ER) | payer MEDICARE ==
[~2017-01-08] VITALS: Ht 167.6 cm; Wt 65.9 kg
[~2017-01-08 15:34] MED LIST changes: +Acetaminophen PO; -Bupivacaine Liposome 1.3% 20 mL Inj NERVEBLOCK ONE; -CeFAZolin Inj 2 GM in IV Premix 1 EACH IV ONE; +HYDR-4003 PO; +ONDA4TAB12 PO; +POLY17PO6 PO
[2017-01-08 15:40] VITALS: BP 135/88; PULSE 72; RESP 28; O2SAT 98
--- NOTE | 2017-01-08 15:56 | ED.REPORT ---
HPI-Abd Pain F 40 and Over Date of Service Jan 08, 2017 ED Provider: Dr. Hudson Pt is a 61 year old female with a hx of bipolar, PTSD and fibromyalgia presenting to the ED post recent partial gastrectomy complaining of severe night sweats. She reports that today she has been panting a lot, and has generally not been feeling well. Associated symptoms include diaphoresis, SOB, chest pain, constipation, dizziness, lightheadedness, neck pain, cough. She denies worsening abdominal pain. She is not on blood thinners or antibiotics. She reports that she has been eating normally. Nursing Notes Stated Complaint: SENT BY DOCTOR Chief Complaint: Female Abdominal Pain Nursing Notes Reviewed: Yes Allergies: Coded Allergies: codeine (Verified Allergy, Severe, vomiting, 01/03/17) Scheduled Esomeprazole Magnesium (Nexium) 20 Mg Capsule.dr 20 MG PO DAILY Polyethylene Glycol 3350 (Miralax) 17 Gm Powd.pack 17 GM PO DAILY Scheduled PRN ([Acetaminophen]) 325 MG TABLET 975 MG PO Q6H PRN PRN For Mild Pain or Fever Hydrocodone-Acetaminophen 5-325 mg (Hydrocodone-Acetaminophen 5-325 mg) 1 Each Tablet 1 TABLET PO Q6H PRN PRN For Pain Ondansetron ODT (Ondansetron ODT) 4 Mg Tab.rapdis 4 MG PO Q6H PRN PRN For Nausea General Time Seen by MD: 15:56 Chief Complaint Other (Diaphoresis) Hx Obtained From: Patient Arrived By: Walk-in Sudden in Onset?: No Symptom Duration: Since onset Progression since Onset: Constant Severity: Current: No pain currently Severity: Maximum: No pain Recent Healthcare: No recent doctor visit, Recent hospitalization, Previous surgery Similar Sx Previous: No Past Medical History Past Medical History Bipolar Depression Anxiety Fibromyalgia Asthma GERD Hiatal hernia Migraines Past Surgical History Ovary cyst, ganglian right hand Smoking History Current Every Day Smoker Ambulatory Status Independent Review of Systems Constitutional: Reports: Fatigue, Malaise Respiratory: Reports: Non-productive cough, Shortness of breath Cardiovascular: Reports: Chest pain GI: Reports: Constipation, Denies: Abdominal pain Musculoskeletal: Reports: Neck pain Complete sys rev & neg: except as marked. Skin: Reports Diaphoresis Neurologic: Reports: Dizziness, Lightheaded Physical Exam Vital Signs Vital Signs (First) Date Time Temp Pulse Resp B/P Pulse Ox O2 Delivery O2 Flow Rate FiO2 4/2/17 15:40 36.7 72 28 135/88 98 Room Air Initial VS: Reviewed Head / Eyes: Atraumatic, Normocephalic, PERRL ENT: Mucous membranes moist, Conjunctiva normal, No scleral icterus Neck: Supple, Non-tender, Full range of motion Skin: Warm, Dry, No cyanosis Neurologic: Alert, Oriented, Nonfocal Psychiatric: Mood/affect normal, Behavior normal, Normal thought content General/Constitutional: Awake, Alert, No acute distress, Well appearing Respiratory / Chest: Breath sounds NL, Breath sounds = bilat, No respiratory distress, No rales, No rhonchi, No wheezing, No stridor Cardiovascular: Heart rate NL, Regular rhythm, Heart sounds NL, Peripheral circulation NL Abdomen: Soft Tenderness/Guarding/Rebound: Positive: Tender diffuse (Mild) Interpretation & Diagnostics Lab Results Interpretation Result Diagram: 01/08/17 1630 01/08/17 1630 Test 01/08/17 16:30 01/08/17 17:40 White Blood Count 9.4th/mm3 (3.8-10.1) Red Blood Count 4.11mil/mm3 (3.90-5.20) Hemoglobin 12.7g/dL (12.0-15.6) Hematocrit 37.8% (35.0-46.0) Mean Corpuscular Volume 92.0fL (81-100) Mean Corpuscular Hemoglobin 30.9pg (27.0-35.0) Mean Corpuscular Hemoglobin Concent 33.6% (32.0-37.0) Red Cell Distribution Width 14.1% (12.3-15.4) Platelet Count 258bil/L (150-400) Neutrophils (%) (Auto) 64.2% (40-74) Lymphocytes (%) (Auto) 26.1% (14-46) Monocytes (%) (Auto) 7.4% (4-12) Eosinophils (%) (Auto) 1.6% (0-5) Basophils (%) (Auto) 0.3% (0-3) Prothrombin Time 12.0sec (8.1-12.5) Prothromb Time International Ratio 1.12ratio Sodium Level 141mEq/L (134-144) Potassium Level 3.7mEq/L (3.5-5.2) Chloride Level 104mEq/L (97-108) Carbon Dioxide Level 20mmol/L (18-29) Blood Urea Nitrogen 18mg/dL (8-27) Creatinine 0.76mg/dL (0.57-1.00) Estimat Glomerular Filtration Rate 99mL/min (>59) Glucose Level 118mg/dL (60-99) Lactic Acid Level 1.0mmol/L (0.4-2.0) Calcium Level 9.4mg/dL (8.5-10.1) Magnesium Level 2.1mg/dL (1.6-2.6) Total Bilirubin 0.3mg/dL (0.0-1.2) Aspartate Amino Transf (AST/SGOT) 25U/L (0-50) Alanine Aminotransferase (ALT/SGPT) 19U/L (0-32) Alkaline Phosphatase 73U/L (25-165) Troponin T < 0.010ug/L (0.0-0.011) Total Protein 7.4g/dL (6.4-8.4) Albumin 3.9g/dL (3.4-5.0) Lipase 19U/L (13-60) Hold Urine Received (Received) ECG Interpretation ECG Interpretation: Sinus arhythmia, otherwise normal. Time: 16:19 Interpreted by: ED physician Normal ECG Interpretation: Normal rate (58) Re-Eval/Medical Decision Re-Evaluation/Progress : Time of Eval: 17:56 Patient Status: Condition improved Re-Evaluation/Progress Note: Discussed transfer to Dr. Arzate. Counseled Regarding: Diagnosis, Lab results, Need for follow-up, When/why to return to ED Discharge & Departure Primary Impression: GIST (gastrointestinal stromal tumor), non-malignant Disposition: Home Discharge Condition All VS Reviewed: Yes Condition: Improved Referrals: ZANE REYES DO (PCP) Care Transferred to: Transferred to Dr. Arzate Care Transferred at: 18:00 Scribe Attestation Portions of this note were transcribed by Dylan Bob. I, Dr. Hudson personally performed the history, physical exam and medical decision-making; I reviewed and confirmed the accuracy of the information in the transcribed note. Signed by: Dena Salgado, 01/08/2017 at 1755. copies to: ZANE REYES Timothy S DO Jan 08, 2017 15:56 DYLAN BOB Jan 08, 2017 16:10
[2017-01-08] MEDS ORDERED: 0.9% Sodium Chloride 1,000 ML IV ONE (16:09)
[2017-01-08] MEDS ORDERED: Ondansetron 2 mg/mL 2 mL Inj IVPUSH ONE (16:10)
[2017-01-08 16:46] LABS: BASOPHILS % (AUTO) 0.3 % (0-3); EOSINOPHILS % (AUTO) 1.6 % (0-5); MONOCYTES % (AUTO) 7.4 % (4-12); Mean Corpuscular Hemoglobin 30.9 pg (27.0-35.0); NEUTROPHILS % (AUTO) 64.2 % (40-74); Platelet Count 258 bil/L (150-400)
[2017-01-08 17:06] LABS: INR 1.12 ratio
[2017-01-08 17:13] LABS: TROPONIN T < 0.010 ug/L (0.0-0.011)
[2017-01-08 17:24] LABS: Lipase 19 U/L (13-60); Magnesium 2.1 mg/dL (1.6-2.6)
[2017-01-08] MEDS ORDERED: Iohexol 300 mg/mL 30 mL Inj PO ONE (17:25)
[2017-01-08 17:48] VITALS: BP 145/68; PULSE 52; RESP 16; O2SAT 98
--- NOTE | 2017-01-08 19:17 | DRSVH ---
PROCEDURE: CT ANGIO CHEST PULMONARY EMBOLISM ([id number]) INDICATIONS: dyspnea, CA, recent surgery TECHNIQUE: After the administration of intravenous contrast, 2 mm thick sections acquired from the pulmonary api rao to the posterior costophrenic angles. 3-dimensional maximum intensity projection (MIP) coronal a nd sagittal reformats were then acquired through the thorax. For radiation dose reduction, the follo wing was used: automated exposure control, adjustment of mA and/or kV according to patient size. COMPARISON: None. FINDINGS: Image quality: Excellent. Pulmonary arteries: Pulmonary arteries are normal in size, and demonstrate no intraluminal filling d efects to suggest central pulmonary embolism. Lungs and pleura: Mild bilateral lower lobe atelectasis is present. No pleural effusions or pneumotho rax. Central and peripheral airways are patent. Mediastinum: Heart size is normal, without pericardial effusion. No mediastinal or hilar adenopathy . Thoracic aorta is normal in caliber and enhancement. Esophagus is normal in caliber, without hiat al hernia. Bones and chest wall: No suspicious bony lesions. Ribs and thoracic spine appear intact throughout. Thyroid gland is within normal limits. No axillary or supraclavicular adenopathy. Abdomen: Visualized upper abdominal solid organs appear normal in the early arterial phase of enhanc ement. IMPRESSION: 1. No acute process. No pulmonary embolus. Dictated by: Rubén Stack M.D. on 01/08/2017 at 19:13 Approved by: Rubén Stack M.D. on 01/08/2017 at 19:15
--- NOTE | 2017-01-08 19:19 | DRSVH ---
PROCEDURE: CT ABDOMEN AND PELVIS WITH CONTRAST ([id number]) INDICATIONS: dyspnea, CA, recent surgery TECHNIQUE: After the administration of oral and intravenous contrast, 5 mm thick sections acquired from the diap hragms to the symphysis. 5 mm thick coronal and sagittal reformats were performed. For radiation do se reduction, the following was used: automated exposure control, adjustment of mA and/or kV accordi ng to patient size. COMPARISON: [facility], CT, CT ABD PELVIS W CON, 12/10/2016, 10:51. FINDINGS: Image quality: Excellent. ABDOMEN: Lung bases: Bibasilar atelectasis. Lung bases are otherwise clear. Heart size is normal. Solid organs: No change in left hepatic lobe cysts. Liver and spleen are otherwise normal in size an d enhancement. Gallbladder is within normal limits. Biliary system is non-dilated. Pancreas enhanc es normally. No adrenal nodules. Kidneys are normal in size and enhancement, without hydronephrosis . Peritoneum and bowel: Surgical staple line traverses the lateral and inferior stomach. Stomach, smal l bowel, and colon loops are normal in caliber and wall thickness. No free fluid or air. Nodes and vessels: No retroperitoneal or mesenteric adenopathy. Aorta and inferior vena cava are no rmal in caliber. Miscellaneous: No ventral hernias. Ventral incision is present. PELVIS: Genitourinary: Bladder wall thickness is normal. Small amount of gas within the urinary bladder is present, presumably reflecting recent catheterization. Miscellaneous: No inguinal hernias or adenopathy. Bones: No suspicious bony lesions. No vertebral body compression fractures. IMPRESSION: 1. Status post resection of the previously seen left upper quadrant mass. 2. No acute process. 3. Small amount of gas within the urinary bladder, presumably reflecting recent catheterization. If t here is no history of bladder catheterization, colovesical fistula should be considered. Dictated by: Rubén Stack M.D. on 01/08/2017 at 19:15 Approved by: Rubén Stack M.D. on 01/08/2017 at 19:18
[2017-01-08 19:35] VITALS: BP 111/68; PULSE 53
[2017-01-08 19:37] VITALS: BP 126/75; PULSE 58
[2017-01-08 20:16] VITALS: BP 124/71; PULSE 63; RESP 16; O2SAT 98
== END 2017-01-08 20:16 | disposition home or self-care (01) ==
LOC: SED 15:34
DX: C49.A0 Gastrointestinal stromal tumor, unspecified site (principal); R06.02 Shortness of breath; R42 Dizziness and giddiness; M54.2 Cervicalgia; K21.9 Gastro-esophageal reflux disease without esophagitis; J45.909 Unspecified asthma, uncomplicated; M79.7 Fibromyalgia; F17.200 Nicotine dependence, unspecified, uncomplicated; Z88.5 Allergy status to narcotic agent
CPT/HCPCS: 36415; 71275; 74177; 80053; 83605; 83690; 83735; 84484; 85025; 85610; 93005; 96360; 99285; J7030; Q9967

== ENCOUNTER 2017-02-09 14:55 | Emergency (ER) | payer MEDICARE ==
[~2017-02-09] VITALS: Ht 167.6 cm; Wt 65.0 kg
[2017-02-09 15:13] VITALS: BP 146/94; PULSE 68; RESP 18; O2SAT 100
--- NOTE | 2017-02-09 15:40 | ED.REPORT ---
HPI-Psychiatric Illness Date of Service February 09, 2017 ED Provider: Rodo Dominique MD A 61 year old female with a history of depression, anxiety and bipolar disorder presents to the ED with worsening depression that began earlier this morning. Patient reports that she has not taken her regular medications for the past 2 days and has been unable to refill her medication from [facility]. Patient' s medication list includes 1 mg of prazepam every night, clonazepam 0.5 mg, olanzapine 10 mg and 100 mg of lamotrigine. She reports that she has been tearful and "very sad" for the past 2 days. Patient was recently seen in the ED on 01/08 for non-cardiac chest pain and was discharged after a reassuring CT chest and CT abdomen. She denies any suicidal ideation at this time. Nursing Notes Stated Complaint: DEPRESSION/DR. ESPINOZA Chief Complaint: Psychiatric Complaint Nursing Notes Reviewed: Yes Allergies: Coded Allergies: codeine (Verified Allergy, Severe, vomiting, 01/03/17) Scheduled Esomeprazole Magnesium (Nexium) 20 Mg Capsule.dr 20 MG PO DAILY Polyethylene Glycol 3350 (Miralax) 17 Gm Powd.pack 17 GM PO DAILY Scheduled PRN ([Acetaminophen]) 325 MG TABLET 975 MG PO Q6H PRN PRN For Mild Pain or Fever Hydrocodone-Acetaminophen 5-325 mg (Hydrocodone-Acetaminophen 5-325 mg) 1 Each Tablet 1 TABLET PO Q6H PRN PRN For Pain Ondansetron ODT (Ondansetron ODT) 4 Mg Tab.rapdis 4 MG PO Q6H PRN PRN For Nausea General Time Seen by MD: 15:32 Chief Complaint Depressed Hx Obtained From: Patient Arrived By: Walk-in Onset Occurred: 2 days ago Symptom Duration: Since onset Progression Since Onset: Unchanged Associated with: Reports: Depression Pertinent Negative: Pt denies other symptoms Recent Healthcare: No recent hospitalization, Recent doctor visit Risk-Psychiatric Illness Suicide Risk Stratification RF Statements: Risk factors reviewed Past Medical History Past Medical History Bipolar Depression Anxiety Fibromyalgia Asthma GERD Hiatal hernia Migraines Past Surgical History Ovary cyst, ganglian right hand Hernia repair Smoking History Current Every Day Smoker, Light Tobacco Smoker Social History Other Social History: Homeless Ambulatory Status Independent Review of Systems Tearful and sad Psychiatric: Reports: Depression, Denies: Suicidal ideation Complete sys rev & neg: except as marked. Physical Exam Initial Vital Signs Vital Signs (First) Date Time Temp Pulse Resp B/P Pulse Ox O2 Delivery O2 Flow Rate FiO2 02/09/17 15:13 36.4 68 18 146/94 100 02/09/17 17:07 Room Air Initial VS: Reviewed Head / Eyes: Atraumatic, Normocephalic, PERRL Neck: Supple, Non-tender, Full range of motion Extremities: Vascular intact, Neuro intact, No swelling, No tenderness Skin: Warm, Dry, No cyanosis General/Constitutional: Awake, Alert, No acute distress Neurologic: Oriented X3, Speech NL, No motor deficits, No sensory deficits, CN II - XII intact, Reflexes equal bilat Psychiatric: Not suicidal, Not homicidal Abnormal Mood/Affect: Positive: Depressed Abnormal Thinking / Perception: Positive: Tangential thinking PSYCH: Not agitated Respiratory / Chest: Atraumatic, Breath sounds NL, Breath sounds = bilat, No respiratory distress Cardiovascular: Heart rate NL, Regular rhythm, Heart sounds NL, No gallop, No murmurs, No rubs, Peripheral circulation NL, Pulses = bilaterally Abdomen: Atraumatic, Soft, Non-tender, No distention ABDOMEN: Well healing laproscopic scar to the right quadrant Interpretation & Diagnostics Lab Results Interpretation Result Diagram: 02/09/17 1555 02/09/17 1555 Test 02/09/17 15:45 02/09/17 15:55 Hold Urine Received (Received) White Blood Count 7.4th/mm3 (3.8-10.1) Red Blood Count 3.96mil/mm3 (3.90-5.20) Hemoglobin 12.4g/dL (12.0-15.6) Hematocrit 36.9% (35.0-46.0) Mean Corpuscular Volume 93.2fL (81-100) Mean Corpuscular Hemoglobin 31.3pg (27.0-35.0) Mean Corpuscular Hemoglobin Concent 33.6% (32.0-37.0) Red Cell Distribution Width 14.0% (12.3-15.4) Platelet Count 228bil/L (150-400) Neutrophils (%) (Auto) 47.5% (40-74) Lymphocytes (%) (Auto) 43.9% (14-46) Monocytes (%) (Auto) 5.0% (4-12) Eosinophils (%) (Auto) 3.0% (0-5) Basophils (%) (Auto) 0.5% (0-3) Sodium Level 141mEq/L (134-144) Potassium Level 4.1mEq/L (3.5-5.2) Chloride Level 103mEq/L (97-108) Carbon Dioxide Level 25mmol/L (18-29) Blood Urea Nitrogen 11mg/dL (8-27) Creatinine 0.59mg/dL (0.57-1.00) Estimat Glomerular Filtration Rate 133mL/min (>59) Glucose Level 114mg/dL (60-99) Calcium Level 9.2mg/dL (8.5-10.1) Total Bilirubin 0.3mg/dL (0.0-1.2) Aspartate Amino Transf (AST/SGOT) 13U/L (0-50) Alanine Aminotransferase (ALT/SGPT) 7U/L (0-32) Alkaline Phosphatase 79U/L (25-165) Total Protein 7.1g/dL (6.4-8.4) Albumin 4.1g/dL (3.4-5.0) Thyroid Stimulating Hormone (TSH) 0.508uIU/mL (0.450-4.500) Hold Santana Top Tube Received (Received) Re-Eval/Medical Decision Med Decision/Clinical Course In summary, the patient is a 61-year-old female with past medical history significant for PTSD and bipolar disorder, who presents to the emergency department stating that she is feeling depressed and that she has ran out of her medications for the last 2 days, she has also recently become homeless though she has a [place] [facility] for [facility]. She additionally has an appointment tomorrow with [facility] to refill her medications. She denies suicidal ideation and states that she would just like her evening medications so she can get through the night. Nursing notes were reviewed. After initial history and physical exam, I didn't feel the patient required a psychiatric hold. I contacted our social media specialist who interviewed the patient as well and agreed with the plan. We considered medical etiologies of the patient's symptoms including metabolic and toxicologic and none were found in our history, physical exam or lab workup. There was no indication of significant trauma on exam. No neurologic defecits to suggest SHOP TEACHER mass. I obtained labs including CBC, CMP and UA to eval for organic disease. These tests were negative. I also obtained a serum ETOH level and UDS. Patient presents with exacerbation of their underlying depression, however they currently deny SI/HI. They are somewhat decompensated but not at extreme risk to self or others and thus not holdable. The patient does not desire voluntary admission. They have outpatient resources in place. Our social media specialist evaluated the patient and provided further resources and support. We discussed the case and agree that the patient is appropriate for outpatient management at this time. The patient was given strong return precautions including thoughts of hurting self or others. Patient feels reassured, ready for discharge and is in agreement with plan. I administered the patient's evening olanzapine and clonazepam. She has a place to stay and the plan for refilling her medications tomorrow. The patient remained comfortable and hemodynamically stable throughout their ED course. She is advised to return to the emergency room immediately should she develop any thoughts of harming herself/others or should she feel decompensated from a medical or psychiatric perspective. Prior to discharge follow-up and return precautions were reviewed in detail with the patient who verbalized understanding and agreement with the plan. The patient was discharged in stable condition. Re-Evaluation/Progress : Time of Eval: 16:28 )( Re-Eval Psychiatric: No suicidal ideation, No homicidal ideation Patient Status: Condition improved Re-Evaluation/Progress Note: Patient agrees with plan after meeting with the CHICKEN CATCHER. All of the patient's questions are addressed. She understands and agrees with treatment plan. Counseled Regarding: Diagnosis, Need for follow-up, When/why to return to ED Discharge & Departure Impression: Primary Impression: Depression Depression Type: unspecified Qualified Code: F32.9 - Major depressive disorder, single episode, unspecified Additional Impressions: Homelessness Noncompliance w/medication treatment due to intermit use of medication )( Condition at Discharge: No suicidal ideation, No homicidal ideation Disposition: Home Discharge Condition All VS Reviewed: Yes Condition: Improved Patient Instructions: Major Depression (DC) Additional Instructions: Thank you for seeking care at the emergency room. Our primary goal today in the ED was to evaluate you for any life-threatening conditions. Your evaluation was reassuring. Please go to [facility] tomorrow at 1 pm to have your medication refilled. You should return to the ED immediately if you develop any thoughts of harming yourself or others or any other concerning signs or symptoms. Thank you for letting us partake in your care today. Referrals: ZANE REYES DO (PCP) Scribe Attestation Portions of this note were transcribed by Kristy Spence. I, Dr. Dominique personally performed the history, physical exam and medical decision-making; I reviewed and confirmed the accuracy of the information in the transcribed note. Signed by: Dena Avina, 02/09/17 [id number]. copies to: ZANE REYES Beck O MD February 09, 2017 15:40 KRISTY SPENCE February 09, 2017 16:06
[2017-02-09 16:15] LABS: BASOPHILS % (AUTO) 0.5 % (0-3); Mean Corpuscular Hemoglobin 31.3 pg (27.0-35.0); Mean Corpuscular Volume 93.2 fL (81-100); NEUTROPHILS % (AUTO) 47.5 % (40-74); Platelet Count 228 bil/L (150-400)
[2017-02-09 17:07] VITALS: BP 139/92; PULSE 92; RESP 20; O2SAT 97
== END 2017-02-09 17:08 | disposition home or self-care (01) ==
LOC: SED 14:55
DX: F32.9 Major depressive disorder, single episode, unspecified (principal); Z91.14 Patient's other noncompliance with medication regimen; F31.9 Bipolar disorder, unspecified; J45.909 Unspecified asthma, uncomplicated; K21.9 Gastro-esophageal reflux disease without esophagitis; M79.7 Fibromyalgia; F17.200 Nicotine dependence, unspecified, uncomplicated; Z59.0 Homelessness; Z88.5 Allergy status to narcotic agent

== ENCOUNTER 2017-04-05 16:02 | Inpatient (IN) | payer MEDICARE ==
[~2017-04-05] VITALS: Ht 167.6 cm; Wt 64.1 kg
[2017-04-05 16:10] VITALS: BP_SYST 122; BP_SYST 139; BP_DIAS 74; BP_DIAS 84; PULSE 84; RESP 16; O2SAT 100
--- NOTE | 2017-04-05 16:31 | ED.REPORT ---
HPI-General Illness Date of Service Apr 05, 2017 ED Provider: Dr. Montes De Oca Pt is a 61 y/o female w/ a hx of GIST s/p resection, PTSD, bipolar, anxiety, depression, migraines, presenting to the ED with friends by recommendation of her PCP due to confusion onset about 2 weeks ago. She states she is having worsening memory problems, confusion, and ongoing headaches for a couple weeks, mildly unsteady gait which is chronic. Pt denies loss of appetite, change in night sweats or chills, change in nausea, abdominal pain, focal numbness or weakness. She has been forgetting how to write her name and says certain words or perform other simple tasks. There has been no recent trauma. 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 Nursing Notes Stated Complaint: CONFUSION Chief Complaint: Neuro Symptoms/ Deficits Nursing Notes Reviewed: Yes Allergies: Coded Allergies: codeine (Verified Allergy, Severe, vomiting, 01/03/17) Scheduled Bupropion (Bupropion) 100 Mg Tablet 100 MG PO BID Esomeprazole Magnesium (Nexium) 20 Mg Capsule.dr 20 MG PO QAM Fluconazole (Fluconazole) 100 Mg Tablet 100 MG PO DAILY Polyethylene Glycol 3350 (Miralax) 17 Gm Powd.pack 17 GM PO DAILY Scheduled PRN Acetaminophen (Acetaminophen) 325 Mg Tablet 650 MG PO Q4H PRN PRN For Pain Hydrocodone-Acetaminophen 5-325 mg (Hydrocodone-Acetaminophen 5-325 mg) 1 Each Tablet 1 TABLET PO Q6H PRN PRN For Pain Ondansetron ODT (Ondansetron ODT) 4 Mg Tab.rapdis 4 MG PO Q6H PRN PRN For Nausea General Time Seen by MD: 16:30 Chief Complaint Other (confusion) Hx Obtained From: Patient Arrived By: Walk-in Onset Occurred: More than a week ago... (2 weeks) Symptom Duration: Since onset Severity: Current: No pain currently Severity: Maximum: No pain Pertinent Negative: Pt denies other symptoms Pertinent Negative: Exacerbated by nothing, Relieved by nothing Recent Healthcare: Recent doctor visit Similar Sx Previous: No Past Medical History Past Medical History Gastric GIST Bipolar PTSD Depression Anxiety Fibromyalgia Asthma GERD Hiatal hernia Migraines Arthritis Past Surgical History Ovary cyst, ganglian right hand Hernia repair Laparoscopic gastric wedge resection - performed after unintentional weight loss and finding of gastric vs pancreatic mass Smoking History Current Every Day Smoker, Light Tobacco Smoker Social History Alcohol Use: Denies alcohol use Drug Use: Denies drug use Other Social History: Homeless Ambulatory Status Independent Review of Systems Full Review of Systems Constitutional: Denies: Chills, Fever Respiratory: Denies: Non-productive cough, Shortness of breath Cardiovascular: Denies: Chest pain, Dyspnea on exertion GI: Denies: Abdominal pain, Nausea, Vomiting Neurologic: Reports: Confusion, Headache, Unable to speak, Denies: Change LOC, Focal weakness, Numbness Complete sys rev & neg: except as marked. Physical Exam Constitutional: Well-developed, well-nourished. Not diaphoretic. Well appearing. No distress. Head: Normocephalic and atraumatic. Mouth/Throat: Oropharynx is clear and moist. No oropharyngeal exudate. Eyes: EOM are normal. Pupils are equal, round, and reactive to light. Neck: Supple, no tracheal deviation. Cardiovascular: Normal rate, regular rhythm. Equal and intact distal pulses throughout. Pulmonary/Chest: Effort normal and breath sounds normal. No respiratory distress. Abdominal: Soft. No distension. There is no tenderness, rebound, or guarding. Musculoskeletal: Range of motion grossly intact, moving all extremities. No edema or tenderness appreciated. Neurological: AOx3. Grossly nonfocal exam. CN II-XII grossly intact. Strength and sensation intact and equal to bilateral upper and lower extremities. Left- sided dysmetria. No pronator drift. NIH of 6 per RN. Skin: Warm and dry, no rashes or pallor appreciated. Psychiatric: Appropriate mood and affect. Behavior appears normal. Vital Signs Vital Signs Date Time Temp Pulse Resp B/P Pulse Ox O2 Delivery O2 Flow Rate FiO2 04/05/17 21:15 77 16 104/53 97 Room Air 04/05/17 19:42 73 20 116/74 100 Room Air 04/05/17 18:36 60 16 135/95 99 Room Air 04/05/17 16:10 36.9 84 16 122/74 100 Room Air Initial VS: Reviewed, Vital signs normal Interpretation & Diagnostics Lab Results Interpretation Result Diagram: 04/05/17 1749 04/05/17 1749 Test 04/05/17 16:20 04/05/17 17:49 04/05/17 18:46 Hold Urine Received (Received) White Blood Count 9.4th/mm3 (3.8-10.1) Red Blood Count 4.22mil/mm3 (3.90-5.20) Hemoglobin 13.4g/dL (12.0-15.6) Hematocrit 39.4% (35.0-46.0) Mean Corpuscular Volume 93.4fL (81-100) Mean Corpuscular Hemoglobin 31.8pg (27.0-35.0) Mean Corpuscular Hemoglobin Concent 34.0% (32.0-37.0) Red Cell Distribution Width 14.3% (12.3-15.4) Platelet Count 272bil/L (150-400) Neutrophils (%) (Auto) 50.0% (40-74) Lymphocytes (%) (Auto) 41.0% (14-46) Monocytes (%) (Auto) 5.1% (4-12) Eosinophils (%) (Auto) 3.4% (0-5) Basophils (%) (Auto) 0.4% (0-3) Prothrombin Time 11.2sec (8.1-12.5) Prothromb Time International Ratio 1.05ratio Activated Partial Thromboplast Time 32.7sec (22.8-33.0) Sodium Level 140mEq/L (134-144) Potassium Level 3.9mEq/L (3.5-5.2) Chloride Level 103mEq/L (97-108) Carbon Dioxide Level 20mmol/L (18-29) Blood Urea Nitrogen 9mg/dL (8-27) Creatinine 0.49mg/dL (0.57-1.00) Estimat Glomerular Filtration Rate 165mL/min (>59) Glucose Level 94mg/dL (60-99) Hemoglobin A1c 5.9% (4.8-5.6) Calcium Level 9.3mg/dL (8.5-10.1) Total Bilirubin 0.2mg/dL (0.0-1.2) Aspartate Amino Transf (AST/SGOT) 15U/L (0-50) Alanine Aminotransferase (ALT/SGPT) 8U/L (0-32) Alkaline Phosphatase 92U/L (25-165) Troponin T < 0.010ug/L (0.0-0.011) Total Protein 7.3g/dL (6.4-8.4) Albumin 4.0g/dL (3.4-5.0) Triglycerides Level 127mg/dL (0-149) Cholesterol Level 231mg/dL (100-199) LDL Cholesterol, Calculated 142.600mg/dL (0-99) VLDL Cholesterol 25.400mg/dL HDL Cholesterol 63mg/dL (>39) Cholesterol/HDL Ratio 3.67 (0.0-4.4) Hold Santana Top Tube Received (Received) Alcohols < 10mg/dL (0-10) Urine Color Yellow (YELLOW) Urine Appearance Clear (CLEAR,HAZY) Urine pH 5.0 (5.0-8.0) Urine Specific [place] 1.025 (1.003-1.035) Urine Protein Negativemg/dL (NEG,TRACE) Urine Glucose (UA) Negativemg/dL (NEGATIVE) Urine Ketones Tracemg/dL (NEGATIVE) Urine Occult Blood Negative (NEGATIVE) Urine Nitrite Negative (NEGATIVE) Urine Bilirubin Negative (NEGATIVE) Urine Urobilinogen Normalmg/dL (NORMAL) Urine Leukocyte Esterase Negative (NEGATIVE) Urine RBC 0-2/hpf (0-2) Urine WBC 0-5/hpf (0-5) Urine Epithelial Cells Moderate/hpf (NONE-MOD) Urine Crystals None seen (NONE SEEN) Urine Bacteria None/hpf (NONE-FEW) Urine Hyaline Casts None/lpf (NONE) Urine Granular Casts None seen (NONE SEEN) Urine Waxy Casts None seen (NONE SEEN) Urine Red Blood Cell Casts None seen (NONE SEEN) Urine White Blood Cell Casts None seen (NONE SEEN) Urine Mucus None seen (None Seen) Urine Trichomonas None seen (NONE SEEN) Urine Yeast None (NONE SEEN) Urinalysis Comment None Urine Culture Reflexed Not indicated Urine Opiates Screen Negative Urine Methadone Screen Negative Urine Barbiturates Screen Negative Urine Amphetamines Screen Negative Urine Benzodiazepines Screen Negative Urine Cocaine Metabolite Screen Negative Urine Cannabinoids Screen Negative ECG Interpretation Time: 18:41 Interpreted by: ED physician Normal ECG Interpretation: Normal ECG w/ rate of... (51), Normal rate, Normal sinus rhythm, No acute ischemic changes, Normal QRS, Normal axis, Normal intervals, No change from prior ECGs, Adequate tracing X-Ray Chest Interpretation Chest Xray Interpretation: IMPRESSION: No acute cardiopulmonary disease. Dictated by: Kirsten Linn M.D. on 04/05/2017 at 18:20 Approved by: Kirsten Linn M.D. on 04/05/2017 at 18:20 View: Portable, 1 view Interpretation / Wet Read by: Interpret - Radiologist CT Head Interpretation IMPRESSION: No acute intracranial abnormality. If clinical symptoms persist or clinical suspicion for pathology is high, a repeat CT or MRI is suggested for further evaluation. Dictated by: Kirsten Linn M.D. on 04/05/2017 at 19:13 Approved by: Kirsten Linn M.D. on 04/05/2017 at 19:15 Study: Head CT no contrast Interpretation / Wet Read by: Interpret - Radiologist Re-Eval/Medical Decision Med Decision/Clinical Course 61 yo F p/w progressive altered mental status and difficulty with certain tasks over the past several weeks. No acute change today - CVA/stroke considered, but not a candidate for tPA with length of time since onset. Lab workup here grossly unremarkable w/ no obv metabolic abnormalities that would account for her presentation. UTox negative. No UTI on UA. No systemic signs of infection. Head CT, CXR grossly wnl. Given her persistent symptoms, plan admission for further eval and mgmt, likely MRI/MRA. Patient agreeable to plan, no further questions. Source of Hx: Old records Time of Eval: 21:02 Re-Evaluation/Progress Note: Pt rechecked. Informed pt of need for admission for AMS workup. Pt understands and agrees with plan for admission. All questions addressed. Consultation : Referral / Consult Name: Koko Hale MD Consulted With: Hospitalist Call Returned at: 21:14 Metal Roofer: Will see patient, Agrees with eval, Agrees with plan, Accepts admit Counseled Regarding: Diagnosis, Lab results, Need for admission Discharge & Departure Primary Impression: Altered mental status Altered mental status type: unspecified Qualified Code: R41.82 - Altered mental status, unspecified Additional Impression: Dysmetria Disposition: ADMITTED TO HOSPITAL Discharge Condition All VS Reviewed: Yes Condition: Stable Referrals: ZANE REYES DO (PCP) Scribe Attestation Portions of this note were transcribed by Earl Lay. I, Dr. Montes De Oca, personally performed the history, physical exam and medical decision-making; I reviewed and confirmed the accuracy of the information in the transcribed note. Signed by Dena Schwab, 04/05/17 - [id number] copies to: ZANE REYES William B MD Apr 05, 2017 16:31 EARL LAY Apr 05, 2017 16:47
[2017-04-05] MEDS ORDERED: 0.9% Sodium Chloride 1,000 ML IV ONE (17:28)
[2017-04-05 18:02] LABS: BASOPHILS % (AUTO) 0.4 % (0-3); EOSINOPHILS % (AUTO) 3.4 % (0-5); MONOCYTES % (AUTO) 5.1 % (4-12); Mean Corpuscular Hemoglobin 31.8 pg (27.0-35.0); Mean Corpuscular Volume 93.4 fL (81-100); Platelet Count 272 bil/L (150-400)
[2017-04-05 18:20] LABS: INR 1.05 ratio
--- NOTE | 2017-04-05 18:22 | DRSVH ---
PROCEDURE: X-RAY CHEST ONE VIEW, PORTABLE ([id number]) INDICATIONS: AMS; eval pna, other abnl TECHNIQUE: One view of the chest was acquired. COMPARISON: [facility], CR, XR CHEST 2VW, 11/06/2015, 14:32. FINDINGS: Surgical changes and devices: None. Lungs and pleura: No pleural effusions or pneumothorax. Lungs are clear. Mediastinum: Mediastinal contours appear normal. Heart size is normal. Bones and chest wall: No suspicious bony lesions. Overlying soft tissues appear unremarkable. IMPRESSION: No acute cardiopulmonary disease. Dictated by: Kirsten Linn M.D. on 04/05/2017 at 18:20 Approved by: Kirsten Linn M.D. on 04/05/2017 at 18:20
[2017-04-05 18:28] LABS: TROPONIN T < 0.010 ug/L (0.0-0.011)
[2017-04-05 18:36] VITALS: BP 135/95; PULSE 60; RESP 16; O2SAT 99
[2017-04-05 18:59] LABS: APPEARANCE,URINE CLEAR (CLEAR,HAZY); COLOR,URINE YELLOW (YELLOW); OCCULT BLOOD,URINE NEGATIVE (NEGATIVE); UROBILINOGEN,URINE NORMAL (NORMAL)
--- NOTE | 2017-04-05 19:16 | DRSVH ---
PROCEDURE: CT BRAIN WITHOUT CONTRAST ([id number]) INDICATIONS: confusion TECHNIQUE: Noncontrast 4.5 mm thick angled axial sections acquired from the foramen magnum to the vertex, with c oronal reformats. COMPARISON: None. FINDINGS: Image quality: Excellent. CSF spaces: Basal cisterns are patent. No extra-axial fluid collections. Ventricles are normal in size and shape. Brain: No midline shift. No intracranial masses or hemorrhage. Peterson-white matter interface is norm al. Skull and face: Calvarium and visualized facial bones are intact, without suspicious lesions. Sinuses: Visualized sinuses and mastoids are clear. IMPRESSION: No acute intracranial abnormality. If clinical symptoms persist or clinical suspicion fo r pathology is high, a repeat CT or MRI is suggested for further evaluation. Dictated by: Kirsten Linn M.D. on 04/05/2017 at 19:13 Approved by: Kirsten Linn M.D. on 04/05/2017 at 19:15
[2017-04-05 19:42] VITALS: BP 116/74; PULSE 73; RESP 20; O2SAT 100
[2017-04-05 21:15] VITALS: BP 104/53; PULSE 77; RESP 16; O2SAT 97
--- NOTE | 2017-04-05 22:21 | NUR ---
Admit @22:00 to room 3022 for AMS. Pain 6/10 headache, VSS 95%O2 sat on RA. Oriented to room and POC on whiteboard. non slip socks for safety.
--- NOTE | 2017-04-05 22:23 | NUR ---
Med Rec Patient is a poor historian, unable to recall medications other than she is not on Hypertension blood pressure meds. [facility], faxing med list request after admit is finished.
[2017-04-05 22:44] VITALS: BP 114/66; PULSE 60; RESP 16; O2SAT 99
[2017-04-05] MEDS ORDERED: Polyethylene Glycol (PEG) 17 Gm Powder PO PRN (22:45)
[2017-04-05] MEDS ORDERED: Alum-Mag Hydrox-Simeth 30 mL Suspension PO PRN (22:45)
[2017-04-05] MEDS ORDERED: Labetalol 5 mg/mL 20 mL Inj IVPUSH PRN (22:45)
[2017-04-05] MEDS ORDERED: Ondansetron 2 mg/mL 2 mL Inj IVPUSH PRN (22:45)
[2017-04-05] MEDS: Lactated Ringer's 1,000 ML IV SCH (22:50)
[2017-04-05] MEDS: 0.9% Sodium Chloride 1,000 ML IV SCH (23:37)
--- NOTE | 2017-04-06 00:53 | PCM.HPMED ---
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 Associated symptoms are not underlying dull headache that she describes as different from her migraine headaches. She states the headache is less severe and located mostly behind the left eye as well as the posterior head on the left. She reports new left-sided blurry vision. She states that she has difficulty at times remembering how to spell her own name, over the symptom has resolved more recently. He reports feeling brain fog at times. She denies recent trauma, focal weakness, fevers, chills, sweats, abdominal pain, nausea, vomiting, diarrhea sore throat, slurred speech, dysphagia, constipation. Of note patient is a current pack per day smoker for the past 20 years. 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 Patient has been followed by Dr. Ho [facility] in the past. CXR showed: No acute cardiopulmonary disease. CT of the brain without contrast showed: No acute intracranial abnormality. In the ED: Patient was given Atorvastatin 10 mg, 1 L bolus normal saline, Vital signs: Temperature 36.9, pulse 60, history rate 16, blood pressure 14/66, 99% on room air. Hemogram was within normal limits. Chemistry panel showed: Within normal limits with a troponin of less than 0.010. Hemoglobin A 1C pending Lipid panel significant for a cholesterol of 231 and LDL of 142 PT/INR 11.2/1.05 Urine toxicology and blood alcohol were negative UA was negative Review of Systems: A comprehensive review of systems was conducted and was negative except as mentioned in history of present illness. Allergies Coded Allergies: codeine (Verified Allergy, Severe, vomiting, 01/03/17) Home Medications Esomeprazole Magnesium (Nexium) 20 Mg Capsule.dr 20 MG PO DAILY PRN ([Acetaminophen]) 325 MG TABLET 975 MG PO Q6H PRN PRN For Mild Pain or Fever PMH Gastric GIST Bipolar PTSD Depression Anxiety Fibromyalgia Asthma GERD Hiatal hernia Migraines Arthritis Surgical History Ovary cyst, ganglian right hand Hernia repair Laparoscopic gastric wedge resection - performed after unintentional weight loss and finding of gastric vs pancreatic mass Family History Patient is adopted Social History Hx Alcohol Use: No Hx Substance Use: No Hx Tobacco Use: Yes (20-30 years one pack per day) Smoking Status: Current Every Day Smoker, Light Tobacco Smoker Exam Vital Signs Vital Sign - Last Date Time Temp Pulse Resp B/P Pulse Ox O2 Delivery O2 Flow Rate FiO2 04/05/17 22:44 36.9 60 16 114/66 99 Room Air Intake and Output 04/05/17 04/05/17 04/06/17 Cumulative From/Thru 15:00 23:00 07:00 04/05/17 16:10 - 04/05/17 22:44 Intake Total 1000 ml 1000 ml Balance 1000 ml 1000 ml Intake IV Total 1000 ml 1000 ml Exam General: Patient is alert and oriented 3, however seems confused at times and somewhat odd. However patient is pleasant and cheerful, speaking in full sentences without signs of slurred speech. HEENT: NC/AT, eyes, PERRLA, EOMI, neck, soft supple, no adenopathy, no JVD, no masses, no thyromegaly, throat mucous membranes pink and moist, no erythema, no exudates, no tonsillar swelling, no uvular deviation. Lungs: CTAB all jean, no wheezes, no rhonchi, no crackles, no adventitious lung sounds, no use of accessory muscles of respiration, good air movement, good respiratory effort. Heart: Regular rate and rhythm, no murmur, S1-S2 present, no rub, no click, no distant heart sounds, Abdomen: Soft, nontender, nondistended, bowel sounds active, no rebound, no guarding, Genitourinary: No CVA tenderness, no suprapubic tenderness, no Duval catheter, Extremities: Muscle strength, 5 out of 5 upper/lower extremity and symmetric laterally, reflexes 2 out of 4 upper/lower extremity and symmetric bilaterally, pulses equal and symmetric upper/lower extremity including radial and dorsalis pedis, no edema Neurologic: Negative signs of nuchal rigidity, negative Brudzinski sign, negative Kernig sign, patient is grossly neurologically intact, peaking in full sentences, however there is some decreased left upper extremity and lower extremity weakness however these findings are inconsistent and I am not convinced that that they are legitimate, [id number] with some upper extremity left-sided dysmetria, [id number] was normal, no pronator drift, no hemineglect. Skin: Dry and intact Psychiatric: Mood is cheerful and mood and affect are congruent and appropriate. Lab and Diagnostics Result Diagram: 04/05/17 17404/05/17 174 X-Rays, CTs and MRIs Date of Service: 04/05/17 1728 PROCEDURE: X-RAY CHEST ONE VIEW, PORTABLE INDICATIONS: AMS; eval pna, other abnl FINDINGS: Surgical changes and devices: None. Lungs and pleura: No pleural effusions or pneumothorax. Lungs are clear. Mediastinum: Mediastinal contours appear normal. Heart size is normal. Bones and chest wall: No suspicious bony lesions. Overlying soft tissues appear unremarkable. IMPRESSION: No acute cardiopulmonary disease. Dictated by: Kirsten Linn M.D. on 04/05/2017 at 18:20 Approved by: Kirsten Linn M.D. on 04/05/2017 at 18:20 Date of Service: 04/05/17 1626 PROCEDURE: CT BRAIN WITHOUT CONTRAST FINDINGS: Image quality: Excellent. CSF spaces: Basal cisterns are patent. No extra-axial fluid collections. Ventricles are normal in size and shape. Brain: No midline shift. No intracranial masses or hemorrhage. Peterson-white matter interface is normal. Skull and face: Calvarium and visualized facial bones are intact, without suspicious lesions. Sinuses: Visualized sinuses and mastoids are clear. IMPRESSION: No acute intracranial abnormality. If clinical symptoms persist or clinical suspicion for pathology is high, a repeat CT or MRI is suggested for further evaluation. Dictated by: Kirsten Linn M.D. on 04/05/2017 at 19:13 Approved by: Kirsten Linn M.D. on 04/05/2017 at 19:15 Assessment & Plan This is a pleasant 61-year-old female with history of gist tumor status post resection, PTSD/bipolar/anxiety/depression with history of migraines presented to the ED complaining of confusion, worsening memory loss, headaches, and unsteady gait for a period of 2 weeks. Patient was admitted for TIA/stroke rule out. # Acute onset TIA/stroke, present on admission, active -Vital signs: Temperature 36.9, pulse 60, history rate 16, blood pressure 14/66 , 99% on room air. -Patient complaining of two-week history of worsening confusion, memory problems , headaches, and unsteady gait. -CXR showed: No acute cardiopulmonary disease. -CT Head Non contrast showed no acute intracranial process. -Hemogram was within normal limits. -Chemistry panel showed: Within normal limits with a troponin of less than 0.010. -Hemoglobin A 1C pending -Lipid panel significant for a cholesterol of 231 and LDL of 142 -PT/INR 11.2/1.05 -Urine toxicology and blood alcohol were negative -UA was negative -Patient was not a candidate for thrombolysis -We will start Aspirin 325 mg daily and give Plavix 75 mg daily -We will initiate Statin Tx, patient was given Atorvastatin 10 mg in the ED -Vital signs + Neuro checks Q 15 min for 2 hr, then Q 30 min for 6 hr, then Q 60 min up to 24 hours. -MRA Brain to follow to R/O hemorrhagic conversion -Continuous Cardiac Monitoring -We will give IV fluids if needed to manage volume depletion/electrolytes -Permissive HTN -BP goal will be to only treat if > 220 systolic or 120 Diastolic -NIHSS score of -Elevate Head of Bed 30 degrees for those at risk of increased intracranial pressure/Aspiration risk. -If febrile maintain Normothermia, and will maintain Euglycemia -SCDs for DVT prophylaxis Chronic Problems #Gastric GIST tumor status post resection, presumed stable #Bipolar -Currently not on medication #PTSD -Currently not on medication #Depression/anxiety -Currently not on medication #Fibromyalgia -Takes Tylenol for pain #Asthma -No asthma medication #GERD -Continue medication Nexium 20 mg daily #Migraines presumed stable #Arthritis presumed stable Disposition: Admitted to in patient service with expected length of stay greater than 2 days, secondary to severity of presenting symptoms, treatment plan, complexity of clinical work up, and risk of adverse events. CODE STATUS: Full code PCP: Calvin Wolf D.O. DVT PE prophylaxis: SCD's/Enoxiparin/SubQ heparin Q8H Contact: Tessa Ann [phone] Pain Evaluation: Adequate Pain Control VTE Prophylaxis: SCDs Resuscitation Status: CPR: Attempt Resuscitation Elvis Moran DO Apr 06, 2017 00:53 Elvis Moran DO Apr 06, 2017 00:53
[2017-04-06 02:21] VITALS: BP 118/72; PULSE 68; RESP 16; O2SAT 96
[2017-04-06] MEDS ORDERED: ACET325T51 PO (02:36)
[2017-04-06] MEDS ORDERED: FLUC100T4 PO (02:36)
[2017-04-06] MEDS ORDERED: BUPR100T15 PO (02:36)
[2017-04-06 04:56] VITALS: BP 102/56; PULSE 70; RESP 16; O2SAT 96
[2017-04-06] MEDS: Lactated Ringer's 1,000 ML IV SCH ×2 (07:26→14:00)
[2017-04-06] MEDS: 0.9% Sodium Chloride 1,000 ML IV SCH ×2 (07:35→14:38)
[2017-04-06 08:00] VITALS: PULSE 48
[2017-04-06 09:47] VITALS: BP 114/57; PULSE 56; RESP 16; O2SAT 98
[2017-04-06] MEDS: Pantoprazole 20 mg ER24 Tablet PO SCH (10:39)
--- NOTE | 2017-04-06 12:43 | NUR ---
MRI pt off the floor for MRI
--- NOTE | 2017-04-06 13:02 | NUR ---
Evaluation completed. Please go to "Notes" then click on "Assessments and Notes" (bottom left corner of screen). Then select appropriate discipline tab on top of screen.
--- NOTE | 2017-04-06 13:42 | NUR ---
Case Managment- IBARRA explained and signed by patient at 1230. Copy given to patient. Original placed in chart. Gracie ACOSTA/ GARY
--- NOTE | 2017-04-06 13:47 | NUR ---
Evaluation completed. Please go to "Notes" then click on "Assessments and Notes" (bottom left corner of screen). Then select appropriate discipline tab on top of screen.
--- NOTE | 2017-04-06 13:52 | NUR ---
Attempted PT eval 3 times today, unsuccessfully. Will reattempt to evaluate patient first thing tomorrow am.
--- NOTE | 2017-04-06 14:13 | DRSVH ---
PROCEDURE: MRI STROKE PROTOCOL ([id number]) Pre- and post-contrast brain MRI, non-contrast brain MR angiogram, pre- and postcontrast neck MR cachorro ogram INDICATIONS: 61 year-old woman with memory and speech problem. TECHNIQUE: Brain: Noncontrast axial T1 spin echo, axial T2 fast spin echo, sagittal and axial FLAIR, coronal T2 fast spin echo, axial gradient echo, axial diffusion and ADC through the brain. After the administr ation of contrast, axial 3D VIBE of the cranial vasculature and brain. Brain MRA: Non-contrast 3-D time of flight MR angiogram, with multiple madfsny-xuuqfwkau-boxjbgtmln (MIP) reformats performed. Neck MRA: Axial and sagittal TruFISP through the neck. Coronal dynamic MR angiogram during administ ration of contrast in the arterial and venous phases, with 3-dimenstional hhvfxda-foelfbfhv-dftuxvjai n (MIP) reformats constructed from subtraction images. COMPARISON: None. FINDINGS: Image quality: Excellent. BRAIN: CSF spaces: Ventricles are normal in size and shape. Basal cisterns are patent. No extra-axial flu id collections. Brain: There are a few foci of T2/FLAIR hyperintensity in the periventricular and subcortical white matter, compatible with mild chronic small vessel ischemic changes. No intracranial bleeds or mass ef fects. Peterson-white matter interface is normal. Diffusion weighted images show no acute ischemic insu lts. Brainstem appears normal. Normal intravascular flow voids are present. No abnormal intracrani al enhancement. Skull and face: Calvarial marrow signal is normal. Orbits appear normal. Sinuses: Mild ethmoid sinus mucosal thickening. The mastoids are clear. BRAIN MR ANGIOGRAM: Anterior circulation: Intracranial internal carotid arteries are normal in size and enhancement. Th e flow within the paired anterior cerebral arteries is normal and symmetric. The flow within the mid dle cerebral arteries is normal and symmetric. The anterior communicating artery is seen. No stenos es, occlusions, or aneurysms. Posterior circulation: The visualized portions of the vertebral arteries demonstrate normal caliber, and join to form a normal appearing basilar artery. The flow within the posterior cerebral arteries is normal and symmetric. No stenoses, occlusions, or aneurysms. NECK MR ANGIOGRAM: Carotids: Great vessels demonstrate a conventional anatomy as they arise from the aortic arch. The origins of the common carotid arteries appear patent. The calibers and courses of both common caroti d arteries are normal. The bifurcation regions appear normal bilaterally. The internal carotid colin carmel demonstrate normal course and caliber. Posterior circulation: The origins of the vertebral arteries appear patent. More superior portions of both vertebral arteries demonstrate normal course and caliber, and join to form a normal appearing basilar artery. Miscellaneous: Subclavian arteries appear patent. Pre-contrast images through the neck show no soft tissue abnormalities. Degenerative disc disease in cervical spine. There is moderate to severe cent ral canal stenosis. IMPRESSION: BRAIN MRI: 1. No acute intracranial abnormalities. 2. A few foci of T2/LEFT hyperintensity, most likely related to chronic microvascular ischemic change s. 3. Mild ethmoid sinus mucosal thickening. BRAIN MR ANGIOGRAM: Normal anterior and posterior circulations. NECK MR ANGIOGRAM: 1. Normal cervical MR angiogram. No significant stenosis or occlusion in carotid arteries or vertebra l arteries. 2. Degenerative disc disease in cervical spine causing moderate to severe central canal stenosis. The estimate of stenosis included in the report of the imaging study was calculated using the NASCET method Dictated by: Kirsten Linn M.D. on 04/06/2017 at 14:08 Transcribed by: SIMONA on 04/06/2017 at 14:14 Approved by: Kirsten Linn M.D. on 04/06/2017 at 17:14
--- NOTE | 2017-04-06 15:42 | NUR ---
Social Work: Initial Assessment Data: Pt is a 61 y/o female admitted for AMS. Pt's PCP is Dr Wolf, pt's insurance is [facility] [place] Medicare. EMR reviewed. Readmit score not listed. [employer] INSPECTOR met with pt at bedside, role explained. Pt states she currently lives at the [facility] longterm where there are no stairs and she uses a cane. Pt drives, has no hx of HH or SNF, no LTC or VA benefits. Pt is not a caregiver. PT and OT recommending home. No d/c planning needs at this time. AIRCRA[employer] LAND[employer] GE[employer] INSPECTOR will continue to follow for possible HH need. Assessment: Pt who is independent at baseline, cane, homeless. Plan: Pt will d/c to [facility] when medically stable. No d/c planning needs at this time. [employer]CRA[employer] LANDING GE[employer] INSPECTOR will continue to follow for possible HH need. RAMA Hernandez Addendum: 04/06/17 at 1544 by LAWSON WALL Amended: Links added.
--- NOTE | 2017-04-06 16:10 | DRSVH ---
[facility] [address] [place] [address] Echocardiogram Report Name: DEEPA HUANG LStudy Date: 04/06/2017 Height : 66 in Hospital Exam Location: [facility] Weight : 139 lb Gender: Female BSA: 1 .7 m2 : 1955 Age: 61 yrs Reason For Study: AMS, CVA HR: 44 Ordering Physician: HOSPITALIST [facility] Performed By: Angela Jesus Referring Physician: JUSTO BONILLA Interpretation Summary Normal both left and right ventricle size and function. The ejection fraction is 60-65%. Moderate tricuspid regurgitation. The right ventricular systolic pressure is estimated at 37 mmHg assuming a right atrial pressure of 15 mm Hg. A bubble study was performed with valsalva. No interatrial shunt. Procedure: A two-dimensional transthoracic echocardiogram with color flow and Doppler was performed. The study quality was technically adequate. There is no prior echocardiogram noted for this patient. The patient was in a bradycardic rhythm during the exam. Left Ventricle: The left ventricle is normal in size. There is normal left ventricular wall thickness. No obvious cardiac source of emboli. The ejection fraction is estimated to be 60-65%. There are no focal wall motion abnormalities. Assessment of diastolic parameters indicates normal left ventricular diastolic function and normal filling pressures. Right Ventricle: The right ventricle is normal in size and function. TAPSE measures at 28mm. Atria: The left atrial size is normal. Right atrial size is normal. The interatrial septum is intact with no evidence for an atrial septal defect. A bubble study was performed with valsalva. No interatrial shunt. Mitral Valve: The mitral valve leaflets appear borderline thickened, but open well. There is no mitral stenosis. Aortic Valve: The aortic valve is normal in structure and function. The aortic valve is trileaflet. There is no aortic valve stenosis. No aortic regurgitation is present. Tricuspid Valve: The tricuspid valve is normal in structure and function. There is moderate tricuspid regurgitation. The right ventricular systolic pressure is estimated at 37 mmHg assuming a right atrial pressure of 15 mm Hg. Pulmonic Valve: The pulmonic valve is normal in structure and function. There is trace pulmonic regurgitation. Great Vessels: The aortic root is normal size. The dimensions of the ascending aorta are normal. The pulmonary artery is normal size. The IVC is dilated (diameter is greater than 2.1 cm) and it collapses less than 50% with a sniff. This suggests a high right atrial pressure of 15 mm Hg. Pericardium/ Pleura There is no pericardial effusion. There is no pleural effusion. MMode/2D Measurements & Calculations LVIDd: 4.4 cm LA dimension RA long axis LVOT diam: 2.0 cm LVIDs: 2.6 cm AoV Openin.8 cm FS: 40.1 % LA A2 area RA area Ao root diam: 3.0 cm EPSS: 0.70 cm Aortic Jxn: 2.4 cm IVSd: 0.78 cm : 16.3 cm asc Aorta Diam: 3.0 cm LVPWd: 0.90 cm LA A4 area RA vol Ao Arch Diam (Prox : 45.0 ml Trans): 2.6 cm LA length (vol) RA : 26.2 mm2 LA vol: 48.9 ml LA vol index IVC diam: 2.2 cm LVAd ap4: 20.4 cm LVAd ap2 LV kidd. diameter/BSA LVAs ap4: 10.0 cm : 22.3 cm EF(MOD-bp) (cm/m^2): 2.6 LVLs ap4: 5.9 cm LVLd ap2: 7.0 cm: 70.1 % EDV(MOD-sp2) EDV(sp2-el) LVAs ap2 : 10.1 cm LVLs ap2: 5.4 cm ESV(MOD-sp2) ESV(sp2-el) EF(MOD-sp2) LV sys. diameter/BSA (cm/m^2): 1.5 Doppler Measurements & Calculations Ao V2 max MV E max bartolome MV E/A: 0.88 TR max bartolome : 144.6 cm/sec : 76.2 cm/sec Med Peak E' Bartolome : 233.6 cm/sec Ao max P.4 mmHg MV A max bartolome TR max PG Ao mean P.6 mmHg : 86.8 cm/sec E/E' med: 7.4 : 21.8 mmHg LVOT Max Bartolome Lat Peak E' Bartolome PA V2 max : 102.4 cm/sec : 74.0 cm/sec SANDHYA(I,D): 2.3 cm E/E' lat: 8.0 PA mean PG sev ratio: 0.73 E/e' average: 7.7 Pulm A Revs Dur PA Accel Time : 0.23 sec MV dec time: 0.27 sec Ao V2 mean LV V1 max PG PA V2 mean : 85.9 cm/sec : 49.1 cm/sec Ao V2 VTI LV V1 VTI: 26.1 cm SANDHYA(V,D): 2.2 cm2 SANDHYA indexed to BSA (cm^2/m^2): 1.3 Electronically signed by: Lucas Sellers on Reading Physician:04/06/2017 04:09 PM
[2017-04-06 17:35] VITALS: BP 104/59; PULSE 55; RESP 18; O2SAT 97
--- NOTE | 2017-04-06 17:44 | NUR ---
H.A. pt complains of a headache. paged, no pain medications on eMAR
--- NOTE | 2017-04-06 18:59 | PCM.PNMED ---
Subjective Date of Service Apr 06, 2017 Subjective pt says she had her last seizure 11 years ago, records are at [facility]. She had seizures before that. Dr. Wolf is PCP. He does not know pt very well. 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 She says she has a bad headaches, neck, all over her head. They are better now. no risk of aspiration per speech, pt/ot did not see her. pt has gait stability/fall issues. Currently not having word finding difficulty Exam Vital Signs Vital Sign - Last Date Time Temp Pulse Resp B/P Pulse Ox O2 Delivery O2 Flow Rate FiO2 04/06/17 04:56 36.4 70 16 102/56 96 Room Air Intake and Output 04/05/17 04/05/17 04/06/17 Cumulative From/Thru 15:00 23:00 07:00 04/05/17 16:10 - 04/05/17 22:44 Intake Total 1000 ml 1000 ml Balance 1000 ml 1000 ml Intake IV Total 1000 ml 1000 ml Exam General: Pleasant, cooperative HEENT: NCAT Heart: RRR, soft systoilic murmur Lungs CTA no crackles or wheezes Neuro: neg finger to nose, neg alternating hands, babinski neg, 1+ achilles reflex, no word finding difficulty, CNII-XII grossly normal abd non distended ext: neg for edema IVs and Medications IV Fluids None Medications Reviewed: Medications were reviewed in detail Lab and Diagnostics Result Diagram: 04/05/17174804/05/17 174 X-Rays, CTs and MRIs Date of Service: 04/05/17 1728 PROCEDURE: X-RAY CHEST ONE VIEW, PORTABLE INDICATIONS: AMS; eval pna, other abnl FINDINGS: Surgical changes and devices: None. Lungs and pleura: No pleural effusions or pneumothorax. Lungs are clear. Mediastinum: Mediastinal contours appear normal. Heart size is normal. Bones and chest wall: No suspicious bony lesions. Overlying soft tissues appear unremarkable. IMPRESSION: No acute cardiopulmonary disease. Dictated by: Kirsten Linn M.D. on 04/05/2017 at 18:20 Approved by: Kirsten Linn M.D. on 04/05/2017 at 18:20 Date of Service: 04/05/17 1626 PROCEDURE: CT BRAIN WITHOUT CONTRAST FINDINGS: Image quality: Excellent. CSF spaces: Basal cisterns are patent. No extra-axial fluid collections. Ventricles are normal in size and shape. Brain: No midline shift. No intracranial masses or hemorrhage. Peterson-white matter interface is normal. Skull and face: Calvarium and visualized facial bones are intact, without suspicious lesions. Sinuses: Visualized sinuses and mastoids are clear. IMPRESSION: No acute intracranial abnormality. If clinical symptoms persist or clinical suspicion for pathology is high, a repeat CT or MRI is suggested for further evaluation. Dictated by: Kirsten Linn M.D. on 04/05/2017 at 19:13 Approved by: Kirsten Linn M.D. on 04/05/2017 at 19:15 PROCEDURE: MRI STROKE PROTOCOL ([id number]) Pre- and post-contrast brain MRI, non-contrast brain MR angiogram, pre- and postcontrast neck MR angiogram INDICATIONS: 61 year-old woman with memory and speech problem. 1. No acute intracranial abnormalities. 2. A few foci of T2/LEFT hyperintensity, most likely related to chronic microvascular ischemic changes. 3. Mild ethmoid sinus mucosal thickening. BRAIN MR ANGIOGRAM: Normal anterior and posterior circulations. NECK MR ANGIOGRAM: 1. Normal cervical MR angiogram. No significant stenosis or occlusion in carotid arteries or vertebral arteries. 2. Degenerative disc disease in cervical spine causing moderate to severe central canal stenosis. The estimate of stenosis included in the report of the imaging study was calculated using the NASCET method Dictated by: Kirsten Linn M.D. on 04/06/2017 at 14:08 Transcribed by: SIMONA on 04/06/2017 at 14:14 Approved by: Kirsten Linn M.D. on 04/06/2017 at 17:14 Cardiac Echo Impressions Echocardiogram Report Interpretation Summary Normal both left and right ventricle size and function. The ejection fraction is 60-65%. Moderate tricuspid regurgitation. The right ventricular systolic pressure is estimated at 37 mmHg assuming a right atrial pressure of 15 mm Hg. A bubble study was performed with valsalva. No interatrial shunt. Electronically signed by: Lucas Sellers on Reading Physician:04/06/2017 04:09 PM Assessment & Plan This is a pleasant 61-year-old female with history of gist tumor status post resection, PTSD/bipolar/anxiety/depression with history of migraines presented to the ED complaining of confusion, worsening memory loss, headaches, and unsteady gait for a period of 2 weeks. Patient was admitted for TIA/stroke rule out. # Acute neurological symptoms, POA resolved: word finding difficulty, dizziness , headache -- Patient complaining of two-week history of worsening confusion, memory problems, headaches, and unsteady gait. -- DDX includes stroke/TIA, seizures, complex migraine: Stroke/TIA ruled out -- CXR showed: No acute cardiopulmonary disease. -- CT Head Non contrast showed no acute intracranial process. -- Chemistry panel showed: Within normal limits with a troponin of less than 0.010. -- Hemoglobin A 1C pending -- Lipid panel significant for a cholesterol of 231 and LDL of 142: Cont Atorvastatin at d/c -- Urine toxicology and blood alcohol were negative -- UA was negative -- Continuous Cardiac Monitoring -- MRI Brain stroke protocol showed: Degenerative disc disease in cervical spine causing moderate to severe central canal stenosis. Chronic ischemic changes -- Stroke is ruled out -- Order EEG to r/o seizures -- Consult [place]itanian in the am Chronic Problems #Gastric GIST tumor status post resection, presumed stable #Bipolar -Currently not on medication #PTSD -Currently not on medication #Depression/anxiety -Currently not on medication #Fibromyalgia -Takes Tylenol for pain #Asthma -No asthma medication #GERD -Continue medication Nexium 20 mg daily #Migraines presumed stable #Arthritis presumed stable Disposition: Admitted to in patient service with expected length of stay greater than 2 days, secondary to severity of presenting symptoms, treatment plan, complexity of clinical work up, and risk of adverse events. CODE STATUS: Full code PCP: Calvin Wolf D.O. DVT PE prophylaxis: SCD's/Enoxiparin/SubQ heparin Q8H Contact: Tessa Ann [phone] VTE Prophylaxis: SCDs Resuscitation Status: CPR: Attempt Resuscitation Time spent 25 min Leann Donnelly DO Apr 06, 2017 08:31 CODE STATUS: Full code PCP: Calvin Wolf D.O. DVT PE prophylaxis: SCD's/Enoxiparin/SubQ heparin Q8H Contact: Tessa Ann [phone] VTE Prophylaxis: SCDs Resuscitation Status: CPR: Attempt Resuscitation Leann Donnelly DO Apr 06, 2017 08:31
[2017-04-06 20:49] VITALS: BP 126/71; PULSE 52; O2SAT 100
[2017-04-07] VITALS (8 sets, daily range): BP systolic 94–123; BP diastolic 53–72; PULSE 42–57; RESP 16–18; O2SAT 98–100
[2017-04-07] MEDS: 0.9% Sodium Chloride 1,000 ML IV SCH ×4 (03:07→20:14)
[2017-04-07] MEDS: Pantoprazole 20 mg ER24 Tablet PO SCH (06:21)
--- NOTE | 2017-04-07 06:32 | NUR ---
Headache relieved by Tylenol allowing patient to sleep during night.
--- NOTE | 2017-04-07 07:55 | NUR ---
Please note OT completed evaluation early yesterday morning prior to rounds--04/06/17. It is available in the medical record. I will check on her today again. Patrice Chen, OTR/L
--- NOTE | 2017-04-07 13:26 | NUR ---
Inpatient status effective today. KYLE signed.
--- NOTE | 2017-04-07 13:52 | PCM.PNMED ---
Subjective Date of Service Apr 07, 2017 Subjective No concerns today Exam Vital Signs Vital Sign - Last Date Time Temp Pulse Resp B/P Pulse Ox O2 Delivery O2 Flow Rate FiO2 04/07/17 13:25 36.6 42 16 122/69 100 Room Air Intake and Output 04/06/17 04/06/17 04/07/17 Cumulative From/Thru 15:00 23:00 07:00 04/05/17 16:10 - 04/07/17 04:55 Intake Total 2535 ml 1571 ml 300 ml 5406 ml Balance 2535 ml 1571 ml 300 ml 5406 ml Intake Oral 637 ml 300 ml 937 ml IV Total 2535 ml 934 ml 4469 ml # Voids 3 2 5 Exam General: Pleasant, cooperative HEENT: NCAT Heart: RRR, soft systoilic murmur Lungs CTA no crackles or wheezes Neuro: neg finger to nose, neg alternating hands, babinski neg, 1+ achilles reflex, no word finding difficulty, CNII-XII grossly normal abd non distended ext: neg for edema IVs and Medications Medications Reviewed: Medications were reviewed in detail Lab and Diagnostics Result Diagram: 04/05/17 1749 04/05/17 174 X-Rays, CTs and MRIs Date of Service: 04/05/17 1728 PROCEDURE: X-RAY CHEST ONE VIEW, PORTABLE INDICATIONS: AMS; eval pna, other abnl FINDINGS: Surgical changes and devices: None. Lungs and pleura: No pleural effusions or pneumothorax. Lungs are clear. Mediastinum: Mediastinal contours appear normal. Heart size is normal. Bones and chest wall: No suspicious bony lesions. Overlying soft tissues appear unremarkable. IMPRESSION: No acute cardiopulmonary disease. Dictated by: Kirsten Linn M.D. on 04/05/2017 at 18:20 Approved by: Kirsten Linn M.D. on 04/05/2017 at 18:20 Date of Service: 04/05/17 1626 PROCEDURE: CT BRAIN WITHOUT CONTRAST FINDINGS: Image quality: Excellent. CSF spaces: Basal cisterns are patent. No extra-axial fluid collections. Ventricles are normal in size and shape. Brain: No midline shift. No intracranial masses or hemorrhage. Peterson-white matter interface is normal. Skull and face: Calvarium and visualized facial bones are intact, without suspicious lesions. Sinuses: Visualized sinuses and mastoids are clear. IMPRESSION: No acute intracranial abnormality. If clinical symptoms persist or clinical suspicion for pathology is high, a repeat CT or MRI is suggested for further evaluation. Dictated by: Kirsten Linn M.D. on 04/05/2017 at 19:13 Approved by: Kirsten Linn M.D. on 04/05/2017 at 19:15 PROCEDURE: MRI STROKE PROTOCOL ([id number]) Pre- and post-contrast brain MRI, non-contrast brain MR angiogram, pre- and postcontrast neck MR angiogram INDICATIONS: 61 year-old woman with memory and speech problem. 1. No acute intracranial abnormalities. 2. A few foci of T2/LEFT hyperintensity, most likely related to chronic microvascular ischemic changes. 3. Mild ethmoid sinus mucosal thickening. BRAIN MR ANGIOGRAM: Normal anterior and posterior circulations. NECK MR ANGIOGRAM: 1. Normal cervical MR angiogram. No significant stenosis or occlusion in carotid arteries or vertebral arteries. 2. Degenerative disc disease in cervical spine causing moderate to severe central canal stenosis. The estimate of stenosis included in the report of the imaging study was calculated using the NASCET method Dictated by: Kirsten Linn M.D. on 04/06/2017 at 14:08 Transcribed by: SIMONA on 04/06/2017 at 14:14 Approved by: Kirsten Linn M.D. on 04/06/2017 at 17:14 Cardiac Echo Impressions Echocardiogram Report Interpretation Summary Normal both left and right ventricle size and function. The ejection fraction is 60-65%. Moderate tricuspid regurgitation. The right ventricular systolic pressure is estimated at 37 mmHg assuming a right atrial pressure of 15 mm Hg. A bubble study was performed with valsalva. No interatrial shunt. Electronically signed by: Lucas Sellers on Reading Physician:04/06/2017 04:09 PM Assessment & Plan This is a pleasant 61-year-old female with history of gist tumor status post resection, PTSD/bipolar/anxiety/depression with history of migraines presented to the ED complaining of confusion, worsening memory loss, headaches, and unsteady gait for a period of 2 weeks. Patient was admitted for TIA/stroke rule out. # Acute neurological symptoms, POA resolved: word finding difficulty, dizziness , headache -- Patient complaining of two-week history of worsening confusion, memory problems, headaches, and unsteady gait. -- DDX includes stroke/TIA, seizures, complex migraine: Stroke/TIA ruled out -- CT Head Non contrast showed no acute intracranial process. -- Chemistry panel showed: Within normal limits with a troponin of less than 0.010. -- Hemoglobin A 1C 5.9, prediabetic -- Lipid panel significant for a cholesterol of 231 and LDL of 142: Cont Atorvastatin at d/c -- Continuous Cardiac Monitoring -- MRI Brain stroke protocol showed: Degenerative disc disease in cervical spine causing moderate to severe central canal stenosis. Chronic ischemic changes -- Stroke is ruled out -- US eCho: "Normal both left and right ventricle size and function.The ejection fraction is 60-65%. Moderate tricuspid regurgitation. The right ventricular systolic pressure is estimated at 37 mmHg assuming a right atrial pressure of 15 mm Hg. A bubble study was performed with valsalva. 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 She is currently being seen by OT. Of note she demonstrated L 4th/5th digit tremors during AROM testing, but these resolved after ~ 5-6 min" Chronic Problems #Gastric GIST tumor status post resection, presumed stable #Bipolar -Currently not on medication #PTSD -Currently not on medication #Depression/anxiety -Currently not on medication #Fibromyalgia -Takes Tylenol for pain #Asthma -No asthma medication #GERD -Continue medication Nexium 20 mg daily #Migraines presumed stable #Arthritis presumed stable Disposition: Admitted to in patient service with expected length of stay greater than 2 days, secondary to severity of presenting symptoms, treatment plan, complexity of clinical work up, and risk of adverse events. CODE STATUS: Full code PCP: Calvin Wolf D.O. DVT PE prophylaxis: SCD's/Enoxiparin/SubQ heparin Q8H Contact: Tessa Ann [phone] Patient Status: Patient was admitted under inpatient status with expected length of stay greater than two midnights due to severity of presenting symptoms , risk of adverse event, and complexity of treatment plan. Complete review of systems performed, pertinent positives and negatives per history of present illness, all other systems reviewed and are negative. VTE Prophylaxis: SCDs Resuscitation Status: CPR: Attempt Resuscitation Time spent 25 min Leann Donnelly DO Apr 07, 2017 13:52
--- NOTE | 2017-04-07 17:23 | NUR ---
HOLBROOK: Patient complained of HOLBROOK 5/10 this shift. Tylenol administered this am for HOLBROOK. Patient states relieved to tolerable level of 3/10. On subsequent assessments of HOLBROOK 5/10, patient declined offers of Tylenol, opting for dark,quiet room and cool wash cloth to forehead. Will continue to follow.
[2017-04-08 00:41] VITALS: BP 105/49; PULSE 46; RESP 18; O2SAT 99
[2017-04-08 05:17] VITALS: BP 126/65; PULSE 53; RESP 18; O2SAT 97
--- NOTE | 2017-04-08 05:58 | NUR ---
Headache Pt reports of headache. Administered Tylenol PRN. Pt reports pain is getting better. Denies chest pain, sob, n/v or abd discomfort. Neuro VS noted no deficits. VSS, Telemetry monitoring noted Sinus Bradycardia low 50's when asleep. VSS and has been afebrile throughout the night.
[2017-04-08 06:03] VITALS: PULSE 65
[2017-04-08] MEDS: Pantoprazole 20 mg ER24 Tablet PO SCH (06:16)
[2017-04-08] MEDS: 0.9% Sodium Chloride 1,000 ML IV SCH (06:17)
[2017-04-08 08:35] VITALS: BP 122/58; PULSE 55; RESP 18; O2SAT 100
[2017-04-08 08:44] VITALS: PULSE 58
[2017-04-08] MEDS ORDERED: ATOR10TA66 PO (08:44)
[2017-04-08] MEDS ORDERED: ASPI81TA3 PO (08:44)
[2017-04-08] MEDS ORDERED: TOPI50TA32 PO (08:47)
--- NOTE | 2017-04-08 08:51 | PCM.DIMED ---
Discharge Instructions Date of Service Apr 08, 2017 Dates of Hospitalization Apr 05, 2017 at 21:46 Discharge Diagnosis Discharge Diagnosis Complex migraine, , fibromyalgia, stroke/TIA/seizure rule out Medication Instructions Additional med instructions Please note to new medication Topamax for migraines Diet Discharge Diet: No restrictions Activity Discharge Activity: No restrictions Call your provider Call your provider for: Fever or Chills, Shortness of breath, Bleeding, Chest pain, Vomitting, Excessive diarrhea, Weakness (unilateral), Other Patient Instructions Follow-up plan Please follow-up with your PCP in 1 week Follow-up at that [facility] in [address] a motor vehicle until cleared by your neurologist Leann Donnelly DO Apr 08, 2017 08:51
--- NOTE | 2017-04-08 09:00 | PCM.DC.MED ---
Discharge Summary Date of Service Apr 08, 2017 Dates of Hospitalization Date of Hospital Admission Apr 05, 2017 at 21:46 Date of Discharge: Apr 08, 2017 Providers: Admitting Physician: Leann Silvestre DO Primary Care Physician: Calvin Wolf DO Attending Physician: Leann Silvestre DO Diagnosis at Time of Discharge Diagnosis at Time of Discharge Complex migraine, , fibromyalgia, stroke/TIA/seizure rule out Consultations Contacted Dr. lees via phone for her EEG report, PT/OT/speech Procedures XRay, CTs & MRIs Date of Service: 04/05/17 1728 PROCEDURE: X-RAY CHEST ONE VIEW, PORTABLE INDICATIONS: AMS; eval pna, other abnl FINDINGS: Surgical changes and devices: None. Lungs and pleura: No pleural effusions or pneumothorax. Lungs are clear. Mediastinum: Mediastinal contours appear normal. Heart size is normal. Bones and chest wall: No suspicious bony lesions. Overlying soft tissues appear unremarkable. IMPRESSION: No acute cardiopulmonary disease. Dictated by: Kirsten Linn M.D. on 04/05/2017 at 18:20 Approved by: Kirsten Linn M.D. on 04/05/2017 at 18:20 Date of Service: 04/05/17 1626 PROCEDURE: CT BRAIN WITHOUT CONTRAST FINDINGS: Image quality: Excellent. CSF spaces: Basal cisterns are patent. No extra-axial fluid collections. Ventricles are normal in size and shape. Brain: No midline shift. No intracranial masses or hemorrhage. Peterson-white matter interface is normal. Skull and face: Calvarium and visualized facial bones are intact, without suspicious lesions. Sinuses: Visualized sinuses and mastoids are clear. IMPRESSION: No acute intracranial abnormality. If clinical symptoms persist or clinical suspicion for pathology is high, a repeat CT or MRI is suggested for further evaluation. Dictated by: Kirsten Linn M.D. on 04/05/2017 at 19:13 Approved by: Kirsten Linn M.D. on 04/05/2017 at 19:15 PROCEDURE: MRI STROKE PROTOCOL ([id number]) Pre- and post-contrast brain MRI, non-contrast brain MR angiogram, pre- and postcontrast neck MR angiogram INDICATIONS: 61 year-old woman with memory and speech problem. 1. No acute intracranial abnormalities. 2. A few foci of T2/LEFT hyperintensity, most likely related to chronic microvascular ischemic changes. 3. Mild ethmoid sinus mucosal thickening. BRAIN MR ANGIOGRAM: Normal anterior and posterior circulations. NECK MR ANGIOGRAM: 1. Normal cervical MR angiogram. No significant stenosis or occlusion in carotid arteries or vertebral arteries. 2. Degenerative disc disease in cervical spine causing moderate to severe central canal stenosis. The estimate of stenosis included in the report of the imaging study was calculated using the NASCET method Dictated by: Kirsten Linn M.D. on 04/06/2017 at 14:08 Transcribed by: SIMONA on 04/06/2017 at 14:14 Approved by: Kirsten Linn M.D. on 04/06/2017 at 17:14 Cardiac Echo Impression Echocardiogram Report Interpretation Summary Normal both left and right ventricle size and function. The ejection fraction is 60-65%. Moderate tricuspid regurgitation. The right ventricular systolic pressure is estimated at 37 mmHg assuming a right atrial pressure of 15 mm Hg. A bubble study was performed with valsalva. No interatrial shunt. 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 Associated symptoms are not underlying dull headache that she describes as different from her migraine headaches. She states the headache is less severe and located mostly behind the left eye as well as the posterior head on the left. She reports new left-sided blurry vision. She states that she has difficulty at times remembering how to spell her own name, over the symptom has resolved more recently. He reports feeling brain fog at times. She denies recent trauma, focal weakness, fevers, chills, sweats, abdominal pain, nausea, vomiting, diarrhea sore throat, slurred speech, dysphagia, constipation. Of note patient is a current pack per day smoker for the past 20 years. 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 Patient has been followed by Dr. Georgia KESSLER in the past. CXR showed: No acute cardiopulmonary disease. CT of the brain without contrast showed: No acute intracranial abnormality. In the ED: Patient was given Atorvastatin 10 mg, 1 L bolus normal saline, Vital signs: Temperature 36.9, pulse 60, history rate 16, blood pressure 14/66, 99% on room air. Hemogram was within normal limits. Chemistry panel showed: Within normal limits with a troponin of less than 0.010. Hemoglobin A 1C pending Lipid panel significant for a cholesterol of 231 and LDL of 142 PT/INR 11.2/1.05 Urine toxicology and blood alcohol were negative UA was negative Hospital Course This is a pleasant 61-year-old female with history of gist tumor status post resection, PTSD/bipolar/anxiety/depression with history of migraines presented to the ED complaining of confusion, worsening memory loss, headaches, and unsteady gait for a period of 2 weeks. Patient was admitted for TIA/stroke rule out. #Complex migraines, POA resolved: word finding difficulty, dizziness, headache -- Patient complaining of two-week history of worsening confusion, memory problems, headaches, and unsteady gait. -- DDX includes stroke/TIA, seizures, complex migraine: Stroke/TIA ruled out, EEG showed no concern for seizure -- CT Head Non contrast showed no acute intracranial process. -- Chemistry panel showed: Within normal limits with a troponin of less than 0.010. -- Hemoglobin A 1C 5.9, prediabetic -- Lipid panel significant for a cholesterol of 231 and LDL of 142: Cont Atorvastatin at d/c -- MRI Brain stroke protocol showed: Degenerative disc disease in cervical spine causing moderate to severe central canal stenosis. Chronic ischemic changes -- Stroke is ruled out -- US eCho: "Normal both left and right ventricle size and function.The ejection fraction is 60-65%. Moderate tricuspid regurgitation. The right ventricular systolic pressure is estimated at 37 mmHg assuming a right atrial pressure of 15 mm Hg. A bubble study was performed with valsalva. No interatrial shunt." -- Pt has undergone an EEG to r/o seizures, request a read: Dr. lees from neurology has read the EEG on the a.m. of discharge, and said that there was no seizure activity noted. Seizure disorder as a cause of her altered mental status is ruled out. 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 She is currently being seen by OT. Of note she demonstrated L 4th/5th digit tremors during AROM testing, but these resolved after ~ 5-6 min" -- Patient is given a prescription for Topamax 50 mg by mouth twice a day for complex migraines and she is asked to follow with Neurology, [facility] in [place] in 2-3 weeks Chronic Problems #Gastric GIST tumor status post resection, presumed stable #Bipolar -Currently not on medication #PTSD -Currently not on medication #Depression/anxiety -Currently not on medication #Fibromyalgia -Takes Tylenol for pain #Asthma -No asthma medication #GERD -Continue medication Nexium 20 mg daily #Migraines presumed stable #Arthritis presumed stable Disposition: Admitted to in patient service with expected length of stay greater than 2 days, secondary to severity of presenting symptoms, treatment plan, complexity of clinical work up, and risk of adverse events. CODE STATUS: Full code PCP: Calvin Wolf D.O. DVT PE prophylaxis: SCD's/Enoxiparin/SubQ heparin Q8H Contact: Tessa Ann [phone] Patient Status: Patient was admitted under inpatient status with expected length of stay greater than two midnights due to severity of presenting symptoms , risk of adverse event, and complexity of treatment plan. Exam Vital Signs (Last) Date Time Temp Pulse Resp B/P Pulse Ox O2 Delivery O2 Flow Rate FiO2 04/08/17 08:44 58 04/08/17 08:35 36.8 18 122/58 100 Room Air Exam General: Pleasant, cooperative HEENT: NCAT Heart: RRR, Neg for systolic murmur Lungs CTA no crackles or wheezes Neuro: no word finding difficulty, CNII-XII grossly normal, she has difficulty maintaining her balance with Romberg test sitting up, states this is normal for her at baseline abd non distended ext: neg for edema Test 04/05/17 16:20 04/05/17 17:49 04/05/17 18:46 Hold Urine Received (Received) White Blood Count 9.4th/mm3 (3.8-10.1) Red Blood Count 4.22mil/mm3 (3.90-5.20) Hemoglobin 13.4g/dL (12.0-15.6) Hematocrit 39.4% (35.0-46.0) Mean Corpuscular Volume 93.4fL (81-100) Mean Corpuscular Hemoglobin 31.8pg (27.0-35.0) Mean Corpuscular Hemoglobin Concent 34.0% (32.0-37.0) Red Cell Distribution Width 14.3% (12.3-15.4) Platelet Count 272bil/L (150-400) Neutrophils (%) (Auto) 50.0% (40-74) Lymphocytes (%) (Auto) 41.0% (14-46) Monocytes (%) (Auto) 5.1% (4-12) Eosinophils (%) (Auto) 3.4% (0-5) Basophils (%) (Auto) 0.4% (0-3) Prothrombin Time 11.2sec (8.1-12.5) Prothromb Time International Ratio 1.05ratio Activated Partial Thromboplast Time 32.7sec (22.8-33.0) Sodium Level 140mEq/L (134-144) Potassium Level 3.9mEq/L (3.5-5.2) Chloride Level 103mEq/L (97-108) Carbon Dioxide Level 20mmol/L (18-29) Blood Urea Nitrogen 9mg/dL (8-27) Creatinine 0.49mg/dL (0.57-1.00) Estimat Glomerular Filtration Rate 165mL/min (>59) Glucose Level 94mg/dL (60-99) Hemoglobin A1c 5.9% (4.8-5.6) Calcium Level 9.3mg/dL (8.5-10.1) Total Bilirubin 0.2mg/dL (0.0-1.2) Aspartate Amino Transf (AST/SGOT) 15U/L (0-50) Alanine Aminotransferase (ALT/SGPT) 8U/L (0-32) Alkaline Phosphatase 92U/L (25-165) Troponin T < 0.010ug/L (0.0-0.011) Total Protein 7.3g/dL (6.4-8.4) Albumin 4.0g/dL (3.4-5.0) Triglycerides Level 127mg/dL (0-149) Cholesterol Level 231mg/dL (100-199) LDL Cholesterol, Calculated 142.600mg/dL (0-99) VLDL Cholesterol 25.400mg/dL HDL Cholesterol 63mg/dL (>39) Cholesterol/HDL Ratio 3.67 (0.0-4.4) Hold Santana Top Tube Received (Received) Alcohols < 10mg/dL (0-10) Urine Color Yellow (YELLOW) Urine Appearance Clear (CLEAR,HAZY) Urine pH 5.0 (5.0-8.0) Urine Specific Trumann 1.025 (1.003-1.035) Urine Protein Negativemg/dL (NEG,TRACE) Urine Glucose (UA) Negativemg/dL (NEGATIVE) Urine Ketones Tracemg/dL (NEGATIVE) Urine Occult Blood Negative (NEGATIVE) Urine Nitrite Negative (NEGATIVE) Urine Bilirubin Negative (NEGATIVE) Urine Urobilinogen Normalmg/dL (NORMAL) Urine Leukocyte Esterase Negative (NEGATIVE) Urine RBC 0-2/hpf (0-2) Urine WBC 0-5/hpf (0-5) Urine Epithelial Cells Moderate/hpf (NONE-MOD) Urine Crystals None seen (NONE SEEN) Urine Bacteria None/hpf (NONE-FEW) Urine Hyaline Casts None/lpf (NONE) Urine Granular Casts None seen (NONE SEEN) Urine Waxy Casts None seen (NONE SEEN) Urine Red Blood Cell Casts None seen (NONE SEEN) Urine White Blood Cell Casts None seen (NONE SEEN) Urine Mucus None seen (None Seen) Urine Trichomonas None seen (NONE SEEN) Urine Yeast None (NONE SEEN) Urinalysis Comment None Urine Culture Reflexed Not indicated Urine Opiates Screen Negative Urine Methadone Screen Negative Urine Barbiturates Screen Negative Urine Amphetamines Screen Negative Urine Benzodiazepines Screen Negative Urine Cocaine Metabolite Screen Negative Urine Cannabinoids Screen Negative Discharge Medications Discharge Medications Aspirin Chew (Aspirin Chew) 81 Mg Chew 324 MG PO DAILY Prescribed by: LEANN SILVESTRE, Bupropion (Bupropion) 100 Mg Tablet 100 MG PO BID (Reported) Esomeprazole Magnesium (Nexium) 20 Mg Capsule.dr 20 MG PO QAM (Reported) Fluconazole (Fluconazole) 100 Mg Tablet 100 MG PO DAILY (Reported) Polyethylene Glycol 3350 (Miralax) 17 Gm Powd.pack 17 GM PO DAILY Prescribed by: BEV SILVESTRE MD Topiramate (Topamax) 50 Mg Tablet 50 MG PO BID Prescribed by: LEANN SILVESTRE DO As needed Acetaminophen (Acetaminophen) 325 Mg Tablet 650 MG PO Q4H PRN PRN For Pain ( Reported) Ondansetron ODT (Ondansetron ODT) 4 Mg Tab.rapdis 4 MG PO Q6H PRN PRN For Nausea Prescribed by: BEV SILVESTRE MD Additional med instructions Please note to new medication Topamax for migraines Followup Plan Follow-up plan Please follow-up with your PCP in 1 week Follow-up at that [facility] neurology in [address] a motor vehicle until cleared by your neurologist Discharge Diet: No restrictions Discharge Activity: No restrictions Time spent Greater than 35 minutes Leann Silvestre DO Apr 08, 2017 09:00 Leann Silvestre DO Apr 08, 2017 09:00
--- NOTE | 2017-04-08 09:24 | PROCED ---
[address] [address] EEG PATIENT: DEEPA HUANG : 1955 MR#: [id number] ADMIT: 04/05/2017 JOB ID: [id number] DATE OF SERVICE: 04/07/2017 HISTORY: The patient is a 61-year-old woman with short-term memory loss and unsteady gait. TECHNICAL DESCRIPTION: This digital EEG was recorded using 25 scalp and ear and two EKG electrodes. It was reviewed in bipolar and referential montages following reformatting in 10-20 International Electrode Placement System. During the recording, the patient was noted to be awake, drowsy, and asleep. The background was composed of an 8 hertz, 10-20 microvolt, symmetrical and reactive posterior dominant rhythm that attenuated with eye opening. The rest of the background was composed of low voltage faster frequencies. There were no focal, lateralized or epileptiform discharges noted. There were no seizures seen. Sleep was characterized by the attenuation of the alpha rhythm, the appearance of symmetrical vertex waves, heralding stage 1 of sleep. This is followed by the development of symmetrical sleep spindles and K complexes, heralding stage 2 of sleep. Hyperventilation was performed for 3 minutes with fair effort. There was no slowing of the background rhythm noted. There was no predominant buildup noted. Photic stimulation from 1-30 hertz did not elicit any photic driving response. The EKG rhythm strip revealed a heart rate of 60-80 beats per minute with no apparent arrhythmias. IMPRESSION: This EEG performed in the awake, drowsy and sleep stage was within normal limits. Clinical correlation is advised.
--- NOTE | 2017-04-08 10:26 | NUR ---
Social Work-discharge: Data:EMR Reviewed. Pt is on day 3 of hospitalization for AMS per H&P. Pt is medically stable for discharge. PT/OT have cleared pt for home no needs. Pt has cane for home use. Pt has been residing at [facility]. No discharge needs identified. All updated and agreeable to plan. Assessment:Pt who is independent at baseline. Plan:Pt to discharge back to [facility] via POV. No discharge needs identified. All updated and agreeable to plan. RAMA Goff
--- NOTE | 2017-04-08 10:58 | NUR ---
Discharge Pt A&O x4. No c/o of headache presently. Steady gait out of bed. Discharge instructions given, new meds went over,all questions and concerns answered. IV dc'd, catheter intact. All belongings accounted for. Pt up to wc independently. Taken out to front lobby by TRUCK RENT[employer] MANAGER.
[2017-04-08] MEDS ORDERED: ATRV10T PO (20:59)
== END 2017-04-08 10:50 | disposition home or self-care (01) | DRG 103 ==
LOC: SED 16:02 → MPC 21:46 → OBSVTOIN 21:46
PROVIDERS: ADMIT Family Medicine; ATTEND Family Medicine
PROC: 4A00X4Z Measurement of Central Nervous Electrical Activity, External Approach (ICD-10-PCS; principal; 2017-04-07)
DX: G43.809 Other migraine, not intractable, without status migrainosus (principal); R42 Dizziness and giddiness; R41.0 Disorientation, unspecified; R26.89 Other abnormalities of gait and mobility; F17.200 Nicotine dependence, unspecified, uncomplicated; M79.7 Fibromyalgia; K21.9 Gastro-esophageal reflux disease without esophagitis; E78.5 Hyperlipidemia, unspecified; Z98.890 Other specified postprocedural states; Z79.82 Long term (current) use of aspirin

== ENCOUNTER 2017-05-07 20:31 | Emergency (ER) | payer MEDICARE, MEDICAID ==
[~2017-05-07] VITALS: Ht 167.6 cm; Wt 59.1 kg
[~2017-05-07 20:31] MED LIST changes: +ACET325T51 PO; +ASPI81TA3 PO; +ATRV10T PO; -Acetaminophen PO; +BUPR100T15 PO; +FLUC100T4 PO; -HYDR-4003 PO; +TOPI50TA32 PO
[2017-05-07 20:43] VITALS: BP 103/61; PULSE 80; RESP 19; O2SAT 98
[2017-05-07 21:00] VITALS: BP 109/53; PULSE 82; RESP 19; O2SAT 99
[2017-05-07 21:22] LABS: BASOPHILS % (AUTO) 0.2 % (0-3); MONOCYTES % (AUTO) 4.8 % (4-12); Mean Corpuscular Hemoglobin 31.1 pg (27.0-35.0); Mean Corpuscular Volume 94.7 fL (81-100); NEUTROPHILS % (AUTO) 79.5 % (40-74); Platelet Count 310 bil/L (150-400)
--- NOTE | 2017-05-07 21:23 | ED.REPORT ---
HPI-Abd Pain F 40 and Over Date of Service May 07, 2017 ED Provider: Dr. Armstrong 61 y/o female with a hx of GIST (s/p surgery in January,), PTSD, bipolar disorder, and migraines presents to the ED via EMS complaining of sudden abdominal pain that came on after she ate at "[employer]" 4 hours ago. Associated sx include subjective fever, vomiting, diarrhea and lack of appetite. She denies hematochezia, melena and hematemesis. Nursing Notes Stated Complaint: NAUSEA, VOMITING, DIARRHEA Chief Complaint: Female Abdominal Pain Nursing Notes Reviewed: Yes Allergies: Coded Allergies: codeine (Verified Allergy, Severe, vomiting, 01/03/17) Scheduled Aspirin Chew (Aspirin Chew) 81 Mg Chew 324 MG PO DAILY Atorvastatin (Lipitor) 10 Mg Tab 10 MG PO DAILY Bupropion (Bupropion) 100 Mg Tablet 100 MG PO BID Esomeprazole Magnesium (Nexium) 20 Mg Capsule.dr 20 MG PO QAM Fluconazole (Fluconazole) 100 Mg Tablet 100 MG PO DAILY Polyethylene Glycol 3350 (Miralax) 17 Gm Powd.pack 17 GM PO DAILY Topiramate (Topamax) 50 Mg Tablet 50 MG PO BID Scheduled PRN Acetaminophen (Acetaminophen) 325 Mg Tablet 650 MG PO Q4H PRN PRN For Pain Ondansetron ODT (Ondansetron ODT) 4 Mg Tab.rapdis 4 MG PO Q6H PRN PRN For Nausea Ondansetron ODT (Ondansetron ODT) 8 Mg Tab.rapdis 8 MG PO QID PRN PRN For Nausea General Time Seen by MD: 21:23 Chief Complaint Abdominal pain Hx Obtained From: Patient Arrived By: Ambulance Sudden in Onset?: Yes Onset Occurred: 1 - 4 hours ago Symptom Duration: Since onset Location: : Diffuse Quality: Painful Radiation: : Does not radiate Severity: Current: Moderate Severity: Maximum: Moderate Recent Healthcare: Recent doctor visit Past Medical History Past Medical History Gastric GIST Bipolar PTSD Depression Anxiety Fibromyalgia Asthma GERD Hiatal hernia Migraines Arthritis Past Surgical History Ovary cyst, ganglian right hand Hernia repair Laparoscopic gastric wedge resection - performed after unintentional weight loss and finding of gastric vs pancreatic mass Smoking History Current Every Day Smoker, Light Tobacco Smoker Social History Alcohol Use: Denies alcohol use Drug Use: Denies drug use Other Social History: Homeless Ambulatory Status Independent Review of Systems GI: Reports: Abdominal pain, Nausea, Vomiting, Denies: Hematemesis, Hematochezia, Melena Complete sys rev & neg: except as marked. Physical Exam Vital Signs Vital Signs (First) Date Time Temp Pulse Resp B/P Pulse Ox O2 Delivery O2 Flow Rate FiO2 05/07/17 20:43 36.6 80 19 103/61 98 Room Air Initial VS: Reviewed Head / Eyes: Atraumatic, Normocephalic Neck: Supple, Non-tender, Full range of motion Extremities: Vascular intact, Neuro intact, No swelling, No tenderness Skin: Warm, Dry, No cyanosis Neurologic: Alert, Oriented, Nonfocal General/Constitutional: Awake, Alert, Cooperative Appearance / Presentation: Negative: Icteric Respiratory / Chest: Atraumatic, Breath sounds NL, Breath sounds = bilat, No respiratory distress, No rales, No rhonchi, No wheezing Cardiovascular: Heart rate NL, Regular rhythm, Heart sounds NL, No gallop, No murmurs, No rubs Abdomen: Atraumatic, Soft, Non-tender, No guarding, No rebound, BS normoactive Back: Atraumatic, Full range of motion ENT: Atraumatic Mouth: Positive: Mucous membranes dry Interpretation & Diagnostics Lab Results Interpretation Result Diagram: 05/07/17211405/07/172114 Test 05/07/17 21:15 05/07/17 23:28 White Blood Count 17.2th/mm3 (3.8-10.1) Red Blood Count 4.86mil/mm3 (3.90-5.20) Hemoglobin 15.1g/dL (12.0-15.6) Hematocrit 46.0% (35.0-46.0) Mean Corpuscular Volume 94.7fL (81-100) Mean Corpuscular Hemoglobin 31.1pg (27.0-35.0) Mean Corpuscular Hemoglobin Concent 32.8% (32.0-37.0) Red Cell Distribution Width 14.1% (12.3-15.4) Platelet Count 310bil/L (150-400) Neutrophils (%) (Auto) 79.5% (40-74) Lymphocytes (%) (Auto) 14.2% (14-46) Monocytes (%) (Auto) 4.8% (4-12) Eosinophils (%) (Auto) 1.0% (0-5) Basophils (%) (Auto) 0.2% (0-3) Sodium Level 141mEq/L (134-144) Potassium Level 3.7mEq/L (3.5-5.2) Chloride Level 103mEq/L (97-108) Carbon Dioxide Level 23mmol/L (18-29) Blood Urea Nitrogen 16mg/dL (8-27) Creatinine 0.85mg/dL (0.57-1.00) Estimat Glomerular Filtration Rate 87mL/min (>59) Glucose Level 125mg/dL (60-99) Calcium Level 9.8mg/dL (8.5-10.1) Magnesium Level 2.3mg/dL (1.6-2.6) Total Bilirubin 0.3mg/dL (0.0-1.2) Aspartate Amino Transf (AST/SGOT) 20U/L (0-50) Alanine Aminotransferase (ALT/SGPT) 11U/L (0-32) Alkaline Phosphatase 114U/L (25-165) Total Protein 8.4g/dL (6.4-8.4) Albumin 4.8g/dL (3.4-5.0) Lipase 20U/L (13-60) Urine Color Yellow (YELLOW) Urine Appearance Clear (CLEAR,HAZY) Urine pH 5.5 (5.0-8.0) Urine Specific Sontag 1.030 (1.003-1.035) Urine Protein Tracemg/dL (NEG,TRACE) Urine Glucose (UA) Negativemg/dL (NEGATIVE) Urine Ketones 15mg/dL (NEGATIVE) Urine Occult Blood Trace (NEGATIVE) Urine Nitrite Negative (NEGATIVE) Urine Bilirubin Negative (NEGATIVE) Urine Urobilinogen Normalmg/dL (NORMAL) Urine Leukocyte Esterase Negative (NEGATIVE) Urine RBC 0-2/hpf (0-2) Urine WBC 0-5/hpf (0-5) Urine Epithelial Cells Moderate/hpf (NONE-MOD) Urine Crystals Oxalic acid crystals (NONE Urine Bacteria Few/hpf (NONE-FEW) Urine Hyaline Casts None/lpf (NONE) Urine Granular Casts None seen (NONE SEEN) Urine Waxy Casts None seen (NONE SEEN) Urine Red Blood Cell Casts None seen (NONE SEEN) Urine White Blood Cell Casts None seen (NONE SEEN) Urine Mucus Present (None Seen) Urine Trichomonas None seen (NONE SEEN) Urine Yeast None (NONE SEEN) Urinalysis Comment None Urine Culture Reflexed Not indicated Re-Eval/Medical Decision Med Decision/Clinical Course 61-year-old presents with acute onset of nausea vomiting and diarrhea. No one else similarly afflicted at home yet. Improved after Zofran and fluids here. Likely viral gastroenteritis. Unlikely food poisoning given she is the only case. Home with Zofran for home use, clear fluid progressive diet, and prompt return of blood or worsening symptoms. Discharged in stable condition. Source of Hx: Old records Re-Evaluation/Progress : Time of Eval: 00:07 Re-Evaluation/Progress Note: Rechecked pt. Discussed lab results, diagnosis and plan to discharge. Pt understands and agrees with the plan. F/U instruction and RTER warning given. All questions addressed. Counseled Regarding: Diagnosis, Lab results, Need for follow-up, When/why to return to ED Discharge & Departure Primary Impression: Diarrhea Diarrhea type: unspecified type Qualified Code: R19.7 - Diarrhea, unspecified Additional Impressions: Acute infective gastroenteritis Vomiting Vomiting type: unspecified Vomiting Intractability: non-intractable Nausea presence: with nausea Qualified Code: R11.2 - Nausea with vomiting, unspecified Disposition: Home Discharge Condition All VS Reviewed: Yes Condition: Stable Patient Instructions: Acute Diarrhea (ED), Acute Nausea and Vomiting (ED), Gastroenteritis (ED) Additional Instructions: Clear liquids only for a day and then advance your diet slowly as tolerated, beginning with broth and simple starches. Avoid fats and milk for several days. Use Pedialyte or Powerade or Gatorade for fluid replacement. Zofran under the tongue up to four times daily if needed for nausea. We do not generally suppress diarrhea, as it can prolong the course. Follow-up with your doctor in the office. Return if any immediate issues, particularly blood in the stool or vomit, or other new symptoms of concern. Referrals: ZANE REYES DO (PCP) Scribe Attestation Portions of this note were transcribed by Arsenio Delvalle. I,, personally performed the history, physical exam and medical decision-making;I reviewed and confirmed the accuracy of the information in the transcribed note. Signed by Dena Lin. 05/07/17 copies to: ZANE REYES Christopher W MD May 07, 2017 21:23 Arsenio Delvalle May 07, 2017 21:33
[2017-05-07 21:30] VITALS: BP 95/52; PULSE 82; RESP 17; O2SAT 98
[2017-05-07] MEDS ORDERED: _Ondansetron ODT 4 mg Tablet PO PRN (21:40)
[2017-05-07] MEDS ORDERED: Ondansetron 2 mg/mL 2 mL Inj IVPUSH ONE (21:40)
[2017-05-07 21:41] LABS: Magnesium 2.3 mg/dL (1.6-2.6)
[2017-05-07] MEDS: 0.9% Sodium Chloride 1,000 ML IV SCH ×2 (21:59→22:36)
[2017-05-07 22:02] VITALS: BP 106/49; PULSE 83; RESP 17; O2SAT 97
[2017-05-07 22:36] VITALS: BP 100/56; PULSE 78; RESP 19; O2SAT 99
[2017-05-07 22:59] VITALS: BP 92/52; PULSE 80; RESP 16; O2SAT 99
[2017-05-07 23:39] LABS: APPEARANCE,URINE CLEAR (CLEAR,HAZY); COLOR,URINE YELLOW (YELLOW); OCCULT BLOOD,URINE TRACE (NEGATIVE); PH,URINE 5.5 (5.0-8.0); UROBILINOGEN,URINE NORMAL (NORMAL)
[2017-05-08 00:02] VITALS: BP 113/49; PULSE 81; RESP 22; O2SAT 99
[2017-05-08] MEDS ORDERED: ONDA8TAB10 PO (00:02)
[2017-05-08 00:16] VITALS: BP 113/49; PULSE 81; RESP 22; O2SAT 99
== END 2017-05-08 00:17 | disposition home or self-care (01) ==
LOC: SED 20:31 → EDBD 20:31 → SED 05-08 00:17
DX: A09 Infectious gastroenteritis and colitis, unspecified (principal); R11.2 Nausea with vomiting, unspecified; F43.10 Post-traumatic stress disorder, unspecified; F31.9 Bipolar disorder, unspecified; F41.9 Anxiety disorder, unspecified; F17.200 Nicotine dependence, unspecified, uncomplicated; Z59.0 Homelessness; Z85.09 Personal history of malignant neoplasm of other digestive organs; Z88.5 Allergy status to narcotic agent; Z98.890 Other specified postprocedural states; Z79.82 Long term (current) use of aspirin
CPT/HCPCS: 36415; 80053; 81000; 83690; 83735; 85025; 96361; 96374; 99284; J2405; J7030